=== PATIENT | male | born 1940 | race Caucasian/White ===

== ENCOUNTER → 2017-04-13 | Outpatient (CLI) | payer MEDICARE ==
--- NOTE | 2017-04-13 21:44 | US ---
EXAMINATION TYPE: US thyroid st tissue head/neck DATE OF EXAM: 04/13/2017 COMPARISON: NONE CLINICAL HISTORY: B22.1 left neck mass. Lump left parotid gland area Complex vascular mass left lateral neck near parotid gland area = 3.5 x 1.9 x 2.5cm IMPRESSION: Suspect heterogeneous hypervascular solid left-sided parotid mass. Further investigation with contrast-enhanced neck CT is advised as neoplasm needs to be excluded.
== END | disposition home or self-care (01) ==
LOC: RADUSWWP 15:11
PROVIDERS: ATTEND Internal Medicine
DX: K11.8 Other diseases of salivary glands (principal)
CPT/HCPCS: 76536

== ENCOUNTER 2019-02-17 10:50 | Observation (INO) | payer MEDICARE ==
[2019-02-17] MEDS ORDERED: IPRATROPIUM-ALBUTEROL 3 ML NEB INHALATION STA ×2 (11:30→13:41)
[2019-02-17 12:24] LABS: Basophils % (A) 0 %; Eosinophils # (A) 0.2 k/uL (0-0.7); Eosinophils % (A) 2 %; HCT 50.9 % (39.0-53.0); HGB 17.1 gm/dL (13.0-17.5); Lymphocytes % (A) 11 %; MCH 31.4 pg (25.0-35.0); MCHC 33.6 g/dL (31.0-37.0); MCV 93.3 fL (80.0-100.0); Mean Platelet Volume 5.4; Monocytes # (A) 0.4 k/uL (0-1.0); Monocytes % (A) 5 %; Neutrophils # (A) 7.3 k/uL (1.3-7.7); Neutrophils % (A) 81 %; Platelet Count 211 k/uL (150-450); RBC 5.45 m/uL (4.30-5.90); RDW 14.1 % (11.5-15.5); WBC 9.1 k/uL (3.8-10.6)
--- NOTE | 2019-02-17 12:29 | XR ---
EXAMINATION TYPE: XR chest 2V DATE OF EXAM: 02/17/2019 COMPARISON: NONE TECHNIQUE: PA and lateral views submitted. HISTORY: Shortness of breath FINDINGS: Hypertrophic and degenerative change of the spine. Hyperinflation suggests COPD. Areas of subsegmenta l consolidation are seen at the lung bases. No overt failure or pneumothorax. IMPRESSION: 1. Basilar atelectasis or infiltrate..
[2019-02-17 12:37] LABS: INR 0.9 (<1.2); Partial Thromboplastin Time 25.8 sec (22.0-30.0)
[2019-02-17 12:53] LABS: ALT 29 U/L (21-72); AST 26 U/L (17-59); African American GFR (CKD) >90 (>60 ml/min/1.73 sqM); Albumin 3.9 g/dL (3.5-5.0); Alkaline Phosphatase 73 U/L (38-126); Anion Gap 7 mmol/L; Blood Urea Nitrogen 21 mg/dL (9-20); Calcium 9.3 mg/dL (8.4-10.2); Carbon Dioxide 31 mmol/L (22-30); Chloride 103 mmol/L (98-107); Glucose 106 mg/dL (74-99); Potassium 4.2 mmol/L (3.5-5.1); Sodium 141 mmol/L (137-145); Total Bilirubin 0.9 mg/dL (0.2-1.3); Total Protein 6.6 g/dL (6.3-8.2)
--- NOTE | 2019-02-17 13:32 | ED ---
SOB HPI - General Chief Complaint: Shortness of Breath Stated Complaint: SOB Time Seen by Provider: 02/17/19 11:00 Source: patient, family Mode of arrival: wheelchair Limitations: no limitations - History of Present Illness Initial Comments: The patient is a 71-year-old male with past medical history of COPD who presents emergency room with reported shortness of breath. He was a transfer from the [facility]. The patient had left carpal tunnel surgery this morning. He went under sedation with ketamine and a local block. No general sedation. After the procedure was noted the patient was diffusely wheezy. Does report these been told that he is COPD however he has never required hospitalization or treatment for difficulty breathing. He does not use any inhalers or oxygen. He denies a history of congestive heart failure. The patient reports that he has had significant lower extremity edema which has been getting worse. He did go into the surgery with the edema present. Admits to a productive cough. No recent fevers or chills. Denies hemoptysis. No history of DVTs or PEs. Denies any chest pain. No ripping or tearing sensation to his back. Denies calf pain. Surgery was performed without complication. Denies any nausea, vomiting, abdominal pain. No changes in his bowel or bladder habits. There are no other alleviating, precipitating or modifying factors - Related Data Home Medications Medication Instructions Recorded Confirmed amLODIPine BESYLATE 5 mg PO DAILY 02/17/19 02/17/19 Previous Rx's Medication Instructions Recorded Azithromycin [Zithromax] 500 mg PO Q24H #5 tab 02/19/19 predniSONE See Taper PO DIRECTED 9 Days 02/19/19 #21 tab Allergies Allergy/AdvReac Type Severity Reaction Status Date / Time No Known Allergies Allergy Verified 02/17/19 13:50 Review of Systems ROS Statement: Those systems with pertinent positive or pertinent negative responses have been documented in the HPI. ROS Other: All systems not noted in ROS Statement are negative. Past Medical History Past Medical History: Cancer, COPD, Hypertension Additional Past Medical History / Comment(s): prostate/bladder CA History of Any Multi-Drug Resistant Organisms: None Reported Past Surgical History: Back Surgery, Prostate Surgery Smoking Status: Current every day smoker Past Alcohol Use History: Occasional Past Drug Use History: None Reported - Past Family History Father Family Medical History: Vascular Disorder Additional Family Medical History / Comment(s): Father young from a brain aneurysm. Mother Family Medical History: Cancer Additional Family Medical History / Comment(s): Mother young with a malignant brain tumor. Brother(s) Family Medical History: Cancer Additional Family Medical History / Comment(s): Brother of malignant brain cancer (same kind as the mother). General Exam Limitations: no limitations General appearance: alert, in no apparent distress Head exam: Present: atraumatic, normocephalic, normal inspection Eye exam: Present: normal appearance, PERRL, EOMI. Absent: scleral icterus, conjunctival injection, periorbital swelling ENT exam: Present: normal exam, mucous membranes moist Neck exam: Present: normal inspection. Absent: tenderness, meningismus, lymphadenopathy Respiratory exam: Present: wheezes, rales, accessory muscle use, other (tachypnia, tripod positioning). Absent: respiratory distress, rhonchi, stridor Cardiovascular Exam: Present: regular rate, normal rhythm, normal heart sounds. Absent: systolic murmur, diastolic murmur, rubs, gallop, clicks GI/Abdominal exam: Present: soft, normal bowel sounds. Absent: distended, tenderness, guarding, rebound, rigid Extremities exam: Present: normal inspection, full ROM, normal capillary refill. Absent: tenderness, pedal edema, joint swelling, calf tenderness Back exam: Present: normal inspection Neurological exam: Present: alert, oriented X3, CN II-XII intact Psychiatric exam: Present: normal affect, normal mood Skin exam: Present: warm, dry, intact, normal color. Absent: rash Course Vital Signs 02/17/19 02/17/19 02/17/19 10:55 11:58 12:41 Temperature 97.8 F Pulse Rate 83 80 74 Respiratory 26 H 22 16 Rate Blood Pressure 154/77 172/70 O2 Sat by Pulse 91 L 95 Oximetry 02/17/19 02/17/19 02/17/19 12:50 13:15 14:00 Temperature 98.0 F Pulse Rate 77 75 72 Respiratory 18 20 18 Rate Blood Pressure 162/64 166/67 O2 Sat by Pulse 93 L 95 Oximetry 02/17/19 14:11 Temperature Pulse Rate 78 Respiratory 16 Rate Blood Pressure O2 Sat by Pulse Oximetry Medical Decision Making - Medical Decision Making Upon arrival the patient is placed into room 24. A thorough history and physical was performed. The patient was placed on 2 L oxygen. I immediately ordered a DuoNeb breathing treatment for the patient. Peripheral IV was established. He was given 125 mg of Solu-Medrol and a gram of magnesium. Laboratory studies were conducted the patient had a chest x-ray performed. Laboratory studies demonstrate a CO2 31. Glucose 106. First troponin is negative. BNP is 157. Chest x-ray demonstrates basilar atelectasis or infiltrate. I did discuss these results with the patient. He does remain diffusely wheezy. Because of this I did recommend hospital admission. I called and discussed the case with Dr. Hong. He did accept admission for the patient. I will place the patient on breathing treatments, antibiotics and steroids. The patient remained in stable condition awaiting transport to the floor - Lab Data Result diagrams: 02/18/19 06:46 02/18/19 06:46 Lab Results 02/17/19 02/17/19 02/17/19 Range/Units 12:00 12:00 12:00 WBC 9.1 (3.8-10.6) k/uL RBC 5.45 (4.30-5.90) m/uL Hgb 17.1 (13.0-17.5) gm/dL Hct 50.9 (39.0-53.0) % MCV 93.3 (80.0-100.0) fL MCH 31.4 (25.0-35.0) pg MCHC 33.6 (31.0-37.0) g/dL RDW 14.1 (11.5-15.5) % Plt Count 211 (150-450) k/uL Neutrophils % 81 % Lymphocytes % 11 % Monocytes % 5 % Eosinophils % 2 % Basophils % 0 % Neutrophils # 7.3 (1.3-7.7) k/uL Lymphocytes # 1.0 (1.0-4.8) k/uL Monocytes # 0.4 (0-1.0) k/uL Eosinophils # 0.2 (0-0.7) k/uL Basophils # 0.0 (0-0.2) k/uL PT (9.0-12.0) sec INR (<1.2) APTT (22.0-30.0) sec Sodium 141 (137-145) mmol/L Potassium 4.2 (3.5-5.1) mmol/L Chloride 103 (98-107) mmol/L Carbon Dioxide 31 H (22-30) mmol/L Anion Gap 7 mmol/L BUN 21 H (9-20) mg/dL Creatinine 0.88 (0.66-1.25) mg/dL Est GFR (CKD-EPI)AfAm >90 (>60 ml/min/1.73 sqM) Est GFR (CKD-EPI)NonAf 83 (>60 ml/min/1.73 sqM) Glucose 106 H (74-99) mg/dL Calcium 9.3 (8.4-10.2) mg/dL Total Bilirubin 0.9 (0.2-1.3) mg/dL AST 26 (17-59) U/L ALT 29 (21-72) U/L Alkaline Phosphatase 73 (38-126) U/L Troponin I (0.000-0.034) ng/mL NT-Pro-B Natriuret Pep 157 pg/mL Total Protein 6.6 (6.3-8.2) g/dL Albumin 3.9 (3.5-5.0) g/dL 02/17/19 02/17/19 Range/Units 12:00 12:00 WBC (3.8-10.6) k/uL RBC (4.30-5.90) m/uL Hgb (13.0-17.5) gm/dL Hct (39.0-53.0) % MCV (80.0-100.0) fL MCH (25.0-35.0) pg MCHC (31.0-37.0) g/dL RDW (11.5-15.5) % Plt Count (150-450) k/uL Neutrophils % % Lymphocytes % % Monocytes % % Eosinophils % % Basophils % % Neutrophils # (1.3-7.7) k/uL Lymphocytes # (1.0-4.8) k/uL Monocytes # (0-1.0) k/uL Eosinophils # (0-0.7) k/uL Basophils # (0-0.2) k/uL PT 10.0 (9.0-12.0) sec INR 0.9 (<1.2) APTT 25.8 (22.0-30.0) sec Sodium (137-145) mmol/L Potassium (3.5-5.1) mmol/L Chloride (98-107) mmol/L Carbon Dioxide (22-30) mmol/L Anion Gap mmol/L BUN (9-20) mg/dL Creatinine (0.66-1.25) mg/dL Est GFR (CKD-EPI)AfAm (>60 ml/min/1.73 sqM) Est GFR (CKD-EPI)NonAf (>60 ml/min/1.73 sqM) Glucose (74-99) mg/dL Calcium (8.4-10.2) mg/dL Total Bilirubin (0.2-1.3) mg/dL AST (17-59) U/L ALT (21-72) U/L Alkaline Phosphatase (38-126) U/L Troponin I <0.012 (0.000-0.034) ng/mL NT-Pro-B Natriuret Pep pg/mL Total Protein (6.3-8.2) g/dL Albumin (3.5-5.0) g/dL - EKG Data EKG Comments: EKG demonstrates a sinus rhythm with premature atrial complexes. Rate of 77. TN interval 184. QRS 88. QTC 436. There are peaked T waves in leads V3. No reciprocal changes. No acute ST segment elevations Disposition Clinical Impression: Acute exacerbation of chronic obstructive pulmonary disease, Acute respiratory insufficiency Disposition: ADMITTED IP TO THIS HOSP Condition: Stable Is patient prescribed a controlled substance at d/c from ED?: No Decision to Admit Reason: Admit from EC Decision Date: 02/17/19 Decision Time: 13:43
[2019-02-17] MEDS ORDERED: AZITHROMYCIN 500 MG in SODIUM CHLORIDE 0.9% 250 ML IVPB STA (13:42)
[2019-02-17] MEDS ORDERED: methylPREDNISolone SOD SUCCI 125 MG/2 ML VIAL IV STA (13:42)
[2019-02-17] MEDS ORDERED: MORPHINE SULFATE 4 MG/ML SYRINGE IVP STA (13:43)
[2019-02-17] MEDS ORDERED: NALOXONE 0.4 MG/ML 1 ML VIAL IV PRN (13:44)
[2019-02-17] MEDS ORDERED: PNEUMOCOCCAL VACC-PNEUMOVAX 23 25 MCG/0.5 ML VIAL IM ONE (15:12)
[2019-02-17] MEDS ORDERED: INFLUENZA VACCINE (6 MOS+) 60 MCG/0.5 ML SYRINGE IM ONE (15:12)
[2019-02-17] MEDS: IPRATROPIUM-ALBUTEROL 3 ML NEB INHALATION SCH ×2 (15:50→20:24)
--- NOTE | 2019-02-17 17:49 | P.HPIM ---
History of Present Illness H&P Date: 02/17/19 Chief Complaint: Shortness of breath 79-year-old male patient with past medical history of COPD, hypertension and prostate/bladder cancer who is a current every day smoker presents to ED with complaint of shortness of breath which has been getting progressively worse; upon arrival to ED patient was found to be hypoxic and Tachypneic with a pulse ox of 91%; EKG shows normal sinus rhythm with PACs; chest x-ray was negative for any acute pulmonary disease; patient is admitted with acute exacerbation COPD Review of Systems Constitutional: Reports chills, Denies fever Eyes: denies blurred vision, denies loss of vision Ears, nose, mouth and throat: Denies epistaxis, Denies headache Cardiovascular: Reports dyspnea on exertion, Reports edema, Denies chest pain Respiratory: Reports cough with sputum Gastrointestinal: Denies abdominal pain, Denies nausea, Denies vomiting Genitourinary: Denies dysuria, Denies hematuria Musculoskeletal: Denies gait dysfunction Integumentary: Denies darkening of skin Neurological: Denies confusion, Denies double vision Psychiatric: Reports anxiety Endocrine: Denies cold intolerance, Denies heat intolerance Hematologic/Lymphatic: Denies lymphadenopathy Past Medical History Past Medical History: Cancer, COPD, Hypertension, Osteoarthritis (OA) Additional Past Medical History / Comment(s): Prostate/bladder CA with surgeries including cystectomy/has urostomy, UTI, L paratid Warthins tumor-benign, chronic low back pain, numbness/tingling bilateral lower extremities with R side worse. History of Any Multi-Drug Resistant Organisms: None Reported Past Surgical History: Back Surgery, Bladder Surgery, Orthopedic Surgery, Prostate Surgery Additional Past Surgical History / Comment(s): Prostatectomy, cystectomy/urostomy, low back surgery, cervical surgery, L knee arthroscopy, Past Anesthesia/Blood Transfusion Reactions: No Reported Reaction Smoking Status: Current every day smoker - Past Family History Father Family Medical History: Vascular Disorder Additional Family Medical History / Comment(s): Father young from a brain aneurysm. Mother Family Medical History: Cancer Additional Family Medical History / Comment(s): Mother young with a malignant brain tumor. Brother(s) Family Medical History: Cancer Additional Family Medical History / Comment(s): Brother of malignant brain cancer (same kind as the mother). Medications and Allergies Home Medications Medication Instructions Recorded Confirmed Type amLODIPine BESYLATE 5 mg PO DAILY 02/17/19 02/17/19 History Allergies Allergy/AdvReac Type Severity Reaction Status Date / Time No Known Allergies Allergy Verified 02/17/19 13:50 Physical Exam Vitals: Vital Signs Temp Pulse Pulse Resp BP BP Pulse Ox 02/17/19 14:58 97.8 F 80 16 168/68 92 L 02/17/19 14:11 78 16 02/17/19 14:00 98.0 F 72 18 166/67 95 02/17/19 13:15 75 20 162/64 93 L 02/17/19 12:50 77 18 02/17/19 12:41 74 16 02/17/19 11:58 80 22 172/70 95 02/17/19 10:55 97.8 F 83 26 H 154/77 91 L Intake and Output 02/17/19 02/17/19 02/17/19 06:59 14:59 22:59 Other: # Voids 0 Weight 82.554 kg PHYSICAL EXAMINATION: GENERAL: The patient is alert and oriented x3, not in any acute distress. Well developed, well nourished. HEENT: Pupils are round and equally reacting to light. EOMI. No scleral icterus. No conjunctival pallor. Normocephalic, atraumatic. No pharyngeal erythema. No thyromegaly. CARDIOVASCULAR: S1 and S2 present. No murmurs, rubs, or gallops. PULMONARY: Chest is clear to auscultation, no wheezing or crackles. ABDOMEN: Soft, nontender, nondistended, normoactive bowel sounds. No palpable organomegaly. MUSCULOSKELETAL: No joint swelling or deformity. EXTREMITIES: No cyanosis, clubbing, or pedal edema. NEUROLOGICAL: Gross neurological examination did not reveal any focal deficits. SKIN: No rashes. Results CBC & Chem 7: 02/17/19 12:00 02/17/19 12:00 Labs: Abnormal Lab Results - Last 24 Hours (Table) 02/17/19 Range/Units 12:00 Carbon Dioxide 31 H (22-30) mmol/L BUN 21 H (9-20) mg/dL Glucose 106 H (74-99) mg/dL Thrombosis Risk Factor Assmnt - Choose All That Apply Any of the Below Risk Factors Present?: Yes Each Factor Represents 1 point: Abnormal pulmonary function (COPD), Obesity (BMI >25), Serious lung disease incl. pneumonia (< 1month) Other Risk Factors: Yes Each Risk Factor Represents 2 Points: Malignancy Each Risk Factor Represents 3 Points: Age 75 years or older Other congenital or acquired thrombophilia - If yes, enter type in comment: No Thrombosis Risk Factor Assessment Total Risk Factor Score: 8 Thrombosis Risk Factor Assessment Level: High Risk Assessment and Plan Assessment: 1. Acute exacerbation COPD - Start patient on IV Solu-Medrol, bronchodilator nebulizer treatments and IV antibiotics - O2 per nasal cannula keeping SpO2 greater than 92% 2. Uncontrolled hypertension; we will restart patient on home dose of Norvasc and continue to monitor her pressure closely for any require changes 3. Mild MARY; slow IV fluid hydration with normal saline; monitor strict YOLI's, daily weights, renal function and electrolytes; avoid hypotension and nephrotoxins 4. Obesity; counseling done on risks of obesity and need for weight reduction 5. DVT prophylaxis; SCDs/subcu heparin CODE STATUS; full code Time with Patient: Greater than 30
[2019-02-18] MEDS: IPRATROPIUM-ALBUTEROL 3 ML NEB INHALATION SCH ×6 (00:03→19:57)
[2019-02-18] MEDS: HEPARIN SODIUM,PORCINE 5,000 UNIT/ML 1 ML VIAL SQ SCH ×4 (00:21→23:19)
[2019-02-18 07:24] LABS: Basophils % (A) 0 %; Eosinophils % (A) 0 %; HCT 49.2 % (39.0-53.0); HGB 15.6 gm/dL (13.0-17.5); Lymphocytes # (A) 0.6 k/uL (1.0-4.8); Lymphocytes % (A) 5 %; MCH 30.7 pg (25.0-35.0); MCHC 31.6 g/dL (31.0-37.0); MCV 97.1 fL (80.0-100.0); Mean Platelet Volume 6.2; Monocytes # (A) 0.7 k/uL (0-1.0); Monocytes % (A) 6 %; Neutrophils # (A) 10.7 k/uL (1.3-7.7); Neutrophils % (A) 88 %; Platelet Count 216 k/uL (150-450); RBC 5.07 m/uL (4.30-5.90); RDW 14.3 % (11.5-15.5); WBC 12.1 k/uL (3.8-10.6)
[2019-02-18 07:47] LABS: African American GFR (CKD) >90 (>60 ml/min/1.73 sqM); Anion Gap 7 mmol/L; Blood Urea Nitrogen 21 mg/dL (9-20); Carbon Dioxide 28 mmol/L (22-30); Chloride 102 mmol/L (98-107); Glucose 121 mg/dL (74-99); Potassium 4.4 mmol/L (3.5-5.1); Sodium 137 mmol/L (137-145)
[2019-02-18] MEDS: amLODIPine 5 MG TAB PO SCH (08:05)
[2019-02-18] MEDS ORDERED: AZITHROMYCIN 500 MG TAB PO SCH (14:00)
--- NOTE | 2019-02-18 16:28 | P.PN ---
Subjective Progress Note Date: 02/18/19 Principal diagnosis: Acute exacerbation COPD 79-year-old male patient with past medical history of COPD, hypertension and prostate/bladder cancer who is a current every day smoker presents to ED with complaint of shortness of breath which has been getting progressively worse; upo n arrival to ED patient was found to be hypoxic and Tachypneic with a pulse ox of 91%; EKG shows normal sinus rhythm with PACs; chest x-ray was negative for any acute pulmonary disease; patient is admitted with acute exacerbation COPD 02/18/2019 Patient is seen and evaluated in room with her daughter at bedside; patient has been requesting discharge home; remains on 2 L of oxygen with marked drop in SpO2 with minimal activity Vital signs temperature of 98, pulse 79, respirations 17 and blood pressure of 157/63 and SpO2 of 90% on 2 L Patient remains on IV Solu-Medrol and bronchodilator nebulizer treatments; we will consult pulmonary for further recommendations Objective - Vital Signs Vital signs: Vital Signs Temp 97.9 F 02/18/19 07:00 Pulse 80 02/18/19 11:50 Resp 16 02/18/19 07:00 BP 170/66 02/18/19 07:00 Pulse Ox 93 L 02/18/19 07:00 Intake & Output 02/17/19 02/18/19 02/18/19 18:59 06:59 18:59 Intake Total 320 236 Balance 320 236 Weight 82.554 kg Intake: Oral 320 236 Other: # Voids 0 1 - Exam PHYSICAL EXAMINATION: GENERAL: The patient is alert and oriented x3, not in any acute distress. Well developed, well nourished. HEENT: Pupils are round and equally reacting to light. EOMI. No scleral icterus. No conjunctival pallor. Normocephalic, atraumatic. No pharyngeal erythema. No thyromegaly. CARDIOVASCULAR: S1 and S2 present. No murmurs, rubs, or gallops. PULMONARY: Chest is clear to auscultation, no wheezing or crackles. ABDOMEN: Soft, nontender, nondistended, normoactive bowel sounds. No palpable organomegaly. MUSCULOSKELETAL: No joint swelling or deformity. EXTREMITIES: No cyanosis, clubbing, or pedal edema. NEUROLOGICAL: Gross neurological examination did not reveal any focal deficits. SKIN: No rashes. - Labs CBC & Chem 7: 02/18/19 06:46 02/18/19 06:46 Labs: Abnormal Lab Results - Last 24 Hours (Table) 02/18/19 02/18/19 Range/Units 06:46 06:46 WBC 12.1 H (3.8-10.6) k/uL Neutrophils # 10.7 H (1.3-7.7) k/uL Lymphocytes # 0.6 L (1.0-4.8) k/uL BUN 21 H (9-20) mg/dL Glucose 121 H (74-99) mg/dL Assessment and Plan Assessment: 1. Acute exacerbation COPD - Start patient on IV Solu-Medrol, bronchodilator nebulizer treatments and IV antibiotics - O2 per nasal cannula keeping SpO2 greater than 92% 2. Uncontrolled hypertension; we will restart patient on home dose of Norvasc and continue to monitor her pressure closely for any require changes 3. Mild MARY; slow IV fluid hydration with normal saline; monitor strict YOLI's, daily weights, renal function and electrolytes; avoid hypotension and nephrotoxins 4. Obesity; counseling done on risks of obesity and need for weight reduction 5. DVT prophylaxis; SCDs/subcu heparin CODE STATUS; full code Time with Patient: Greater than 30
[2019-02-18] MEDS: methylPREDNISolone SOD SUCCI 40 MG/ML 1 ML VIAL IV SCH ×2 (16:45→23:19)
[2019-02-19] MEDS: IPRATROPIUM-ALBUTEROL 3 ML NEB INHALATION SCH ×4 (00:35→12:29)
[2019-02-19] MEDS ORDERED: NAPROXEN 250 MG TAB PO PRN (03:08)
[2019-02-19 07:03] VITALS: BP 163/79; RESP 18; TEMP 99.2
[2019-02-19] MEDS: amLODIPine 5 MG TAB PO SCH (07:33)
[2019-02-19] MEDS: HEPARIN SODIUM,PORCINE 5,000 UNIT/ML 1 ML VIAL SQ SCH (07:33)
[2019-02-19] MEDS: methylPREDNISolone SOD SUCCI 40 MG/ML 1 ML VIAL IV SCH (07:34)
--- NOTE | 2019-02-19 12:47 | P.DS ---
Providers Date of admission: 02/17/19 13:44 Expected date of discharge: 02/19/19 Attending physician: Mounika Hong Consults: 02/18/19 16:28 Consult Physician Routine Consulting Provider: Jovany Hinton Consult Reason/Comments: Acute exacerbation COPD/hypoxemia Do you want consulting provider notified?: Yes [facility]: 79-year-old male patient with past medical history of COPD, hypertension and prostate/bladder cancer who is a current every day smoker presents to ED with complaint of shortness of breath which has been getting progressively worse; upon arrival to ED patient was found to be hypoxic and Tachypneic with a pulse ox of 91%; EKG shows normal sinus rhythm with PACs; chest x-ray was negative for any acute pulmonary disease; patient is admitted with acute exacerbation COPD 1. Acute exacerbation COPD - Start patient on IV Solu-Medrol, bronchodilator nebulizer treatments and IV antibiotics - O2 per nasal cannula keeping SpO2 greater than 92% 2. Uncontrolled hypertension; we will restart patient on home dose of Norvasc and continue to monitor her pressure closely for any require changes 3. Mild MARY; slow IV fluid hydration with normal saline; monitor strict YOLI's, daily weights, renal function and electrolytes; avoid hypotension and nephrotoxins 4. Obesity; counseling done on risks of obesity and need for weight reduction 5. DVT prophylaxis; SCDs/subcu heparin CODE STATUS; full code Pulmonary service is consulted and patient was recommended to continue with current treatment and discharged to be followed up by pulmonary service in 2-3 days Patient Condition at Discharge: Stable Plan - Discharge Summary Discharge Rx Participant: No New Discharge Prescriptions: New predniSONE See Taper PO DIRECTED 9 Days #21 tab Azithromycin [Zithromax] 500 mg PO Q24H #5 tab Continue amLODIPine BESYLATE 5 mg PO DAILY Discharge Medication List amLODIPine BESYLATE 5 mg PO DAILY 02/17/19 [History] Azithromycin [Zithromax] 500 mg PO Q24H #5 tab 02/19/19 [Rx] predniSONE See Taper PO DIRECTED 9 Days #21 tab 02/19/19 [Rx] Follow up Appointment(s)/Referral(s): Jovany Hinton MD [STAFF PHYSICIAN] - 3 Days Yuval Caemron MD [Primary Care Provider] - 1-2 days Patient Instructions/Handouts: COPD (Chronic Obstructive Pulmonary Disease) (DC) Discharge Disposition: HOME SELF-CARE
[2019-02-19 12:58] VITALS: PULSE 88
== END 2019-02-19 13:02 | disposition home or self-care (01) ==
LOC: EC 10:50 → 4SSUR 13:44
PROVIDERS: ADMIT Internal Medicine; ATTEND Internal Medicine
DX: J44.1 Chronic obstructive pulmonary disease with (acute) exacerbation (principal); N17.9 Acute kidney failure, unspecified; I10 Essential (primary) hypertension; F17.200 Nicotine dependence, unspecified, uncomplicated; I49.1 Atrial premature depolarization; G56.02 Carpal tunnel syndrome, left upper limb; Z98.890 Other specified postprocedural states; R60.0 Localized edema; M19.90 Unspecified osteoarthritis, unspecified site; G89.29 Other chronic pain; M54.5 Low back pain; R20.2 Paresthesia of skin; R20.0 Anesthesia of skin; E66.9 Obesity, unspecified; Z68.31 Body mass index [BMI] 31.0-31.9, adult; Z79.899 Other long term (current) drug therapy; Z85.51 Personal history of malignant neoplasm of bladder; Z87.440 Personal history of urinary (tract) infections; Z90.79 Acquired absence of other genital organ(s); Z85.46 Personal history of malignant neoplasm of prostate; Z80.8 Family history of malignant neoplasm of other organs or systems; Z82.49 Family history of ischemic heart disease and other diseases of the circulatory system; Z23 Encounter for immunization
CPT/HCPCS: 96376 ×2; 96372 ×2; 96365; 96366; 96375; 99285; 36415; 94640 ×6; 83880; 80053; 80048; 84484 ×2; 85025 ×2; 85610; 85730; 71046; 90732; 90686; G0378 ×3; G0008; G0009; J2270; J1644 ×2; J2920 ×2; J2930; J0456

== ENCOUNTER 2019-03-08 12:12 | Inpatient (IN) | payer MEDICARE ==
--- NOTE | 2019-03-08 12:47 | ED ---
General Adult HPI - General Chief complaint: Shortness of Breath Stated complaint: SOB Time Seen by Provider: 03/08/19 12:23 Source: patient Mode of arrival: ambulatory Limitations: no limitations - History of Present Illness Initial comments: Dictation was produced using [employer] dictation software. please excuse any grammatical, word or spelling errors. Chief Complaint: 79-year-old male past medical history of prostate cancer, COPD and hypertension presents with shortness of breath and lower extremity swelling. History of Present Illness: Patient is a 71-year-old male he was seen for a follow-up appointment at Dr. Miller office. Patient was recently hospitalized for acute exacerbation of COPD with hypoxic respiratory failure. Patient was admitted to the hospital for approximately 2 days. Patient was seen at Dr. Cameron's office for a follow-up appointment. Dr. Cameron as instructed patient to the emergency department for persistent shortness of breath. Patient also reports development of swelling in his lower extremities. Patient states she developed swelling after having carpal tunnel procedure performed several weeks ago. Patient denies any URI type symptoms. No right nose, sore throat. Patient has history of COPD. Patient has baseline cough which appears to be at baseline for him currently. Patient has no pain complaints at this time. Patient otherwise feels well. The ROS documented in this emergency department record has been reviewed and confirmed by me. Those systems with pertinent positive or negative responses have been documented in the HPI. All other systems are other negative and/or noncontributory. PHYSICAL EXAM: General Impression: Alert and oriented x3, not in acute distress HEENT: Normocephalic atraumatic, extra-ocular movements intact, pupils equal and reactive to light bilaterally, mucous membranes moist. Cardiovascular: Heart regular rate and rhythm, S1&S2 audible, no murmurs, rubs or gallops Chest: Diffuse lung crackles Abdomen: Bowel sounds present, abdomen soft, non-tender, non-distended, no organomegaly Musculoskeletal: Pulses present and equal in all extremities, 2+ pitting edema to bilateral lower extremities Motor: no focal deficits noted Neurological: CN II-XII grossly intact, no focal motor or sensory deficits noted Skin: Intact with no visualized rashes Psych: Normal affect and mood ED course: 79-year-old male sent in by primary care physician for dyspnea and lower extremity swelling. Vital signs upon arrival are within acceptable limits . Patient does not appear to be in distress at this time. Auscultation to the lungs shows crackles diffusely. Laboratory evaluation obtained. CBC, coag panel, metabolic is unremarkable. probnp is 569. Troponin 0.023 which appears to be at baseline. Chest x-ray shows chronic findings. Given low proBNP patient's clinical presentation likely not heart failure. I believe patient's symptoms are secondary to COPD. Patient given breathing treatment and DuoNeb. Patient had his oxygen recheck found to be 88%. Patient's clinical presentation consistent with also hypoxic respiratory failure. Patient will be admitted with pulmonology consultation. EKG interpretation: Ventricular rate 95, sinus rhythm,. Interval 194, care is 82, QTC 422. No [place] prolongation, no QTC prolongation, no ST or T-wave changes noted. EKG compared to 02/17/2019 showing no changes. Overall, this EKG is unremarkable - Related Data Home Medications Medication Instructions Recorded Confirmed amLODIPine BESYLATE 5 mg PO DAILY 02/17/19 02/17/19 Previous Rx's Medication Instructions Recorded Azithromycin [Zithromax] 500 mg PO Q24H #5 tab 02/19/19 predniSONE See Taper PO DIRECTED 9 Days 02/19/19 #21 tab Allergies Allergy/AdvReac Type Severity Reaction Status Date / Time No Known Allergies Allergy Verified 03/08/19 12:15 Review of Systems ROS Statement: Those systems with pertinent positive or pertinent negative responses have been documented in the HPI. ROS Other: All systems not noted in ROS Statement are negative. Past Medical History Past Medical History: Cancer, COPD, Hypertension Additional Past Medical History / Comment(s): prostate/bladder CA History of Any Multi-Drug Resistant Organisms: None Reported Past Surgical History: Back Surgery, Orthopedic Surgery, Prostate Surgery Additional Past Surgical History / Comment(s): carpal tunnel Past Anesthesia/Blood Transfusion Reactions: No Reported Reaction Past Psychological History: No Psychological Hx Reported Smoking Status: Former smoker Past Alcohol Use History: Occasional Past Drug Use History: None Reported - Past Family History Father Family Medical History: Vascular Disorder Additional Family Medical History / Comment(s): Father young from a brain aneurysm. Mother Family Medical History: Cancer Additional Family Medical History / Comment(s): Mother young with a malignant brain tumor. Brother(s) Family Medical History: Cancer Additional Family Medical History / Comment(s): Brother of malignant brain cancer (same kind as the mother). General Exam Limitations: no limitations Course Vital Signs 03/08/19 03/08/19 03/08/19 12:15 12:41 13:59 Temperature 98.1 F Pulse Rate 85 22 L Respiratory 18 22 94 H Rate Blood Pressure 178/98 183/90 O2 Sat by Pulse 93 L 88 L Oximetry 03/08/19 14:03 Temperature Pulse Rate 91 Respiratory 18 Rate Blood Pressure O2 Sat by Pulse 94 L Oximetry Medical Decision Making - Lab Data Result diagrams: 03/08/19 12:37 03/08/19 12:37 Lab Results 03/08/19 03/08/19 03/08/19 Range/Units 12:37 12:37 12:37 WBC 9.6 (3.8-10.6) k/uL RBC 5.07 (4.30-5.90) m/uL Hgb 16.0 (13.0-17.5) gm/dL Hct 47.9 (39.0-53.0) % MCV 94.6 (80.0-100.0) fL MCH 31.5 (25.0-35.0) pg MCHC 33.3 (31.0-37.0) g/dL RDW 14.0 (11.5-15.5) % Plt Count 200 (150-450) k/uL Neutrophils % 85 % Lymphocytes % 6 % Monocytes % 5 % Eosinophils % 1 % Basophils % 2 % Neutrophils # 8.1 H (1.3-7.7) k/uL Lymphocytes # 0.6 L (1.0-4.8) k/uL Monocytes # 0.5 (0-1.0) k/uL Eosinophils # 0.1 (0-0.7) k/uL Basophils # 0.2 (0-0.2) k/uL PT (9.0-12.0) sec INR (<1.2) APTT (22.0-30.0) sec Sodium 138 (137-145) mmol/L Potassium 4.9 (3.5-5.1) mmol/L Chloride 105 (98-107) mmol/L Carbon Dioxide 29 (22-30) mmol/L Anion Gap 4 mmol/L BUN 18 (9-20) mg/dL Creatinine 0.76 (0.66-1.25) mg/dL Est GFR (CKD-EPI)AfAm >90 (>60 ml/min/1.73 sqM) Est GFR (CKD-EPI)NonAf 88 (>60 ml/min/1.73 sqM) Glucose 128 H (74-99) mg/dL POC Glucose (mg/dL) (75-99) mg/dL POC Glu [employer] Consultant ID Calcium 9.1 (8.4-10.2) mg/dL Magnesium 1.9 (1.6-2.3) mg/dL Total Bilirubin 1.3 (0.2-1.3) mg/dL AST 45 (17-59) U/L ALT 53 (21-72) U/L Alkaline Phosphatase 63 (38-126) U/L Troponin I (0.000-0.034) ng/mL NT-Pro-B Natriuret Pep 569 pg/mL Total Protein 7.0 (6.3-8.2) g/dL Albumin 3.9 (3.5-5.0) g/dL 03/08/19 03/08/19 03/08/19 Range/Units 12:37 12:37 14:01 WBC (3.8-10.6) k/uL RBC (4.30-5.90) m/uL Hgb (13.0-17.5) gm/dL Hct (39.0-53.0) % MCV (80.0-100.0) fL MCH (25.0-35.0) pg MCHC (31.0-37.0) g/dL RDW (11.5-15.5) % Plt Count (150-450) k/uL Neutrophils % % Lymphocytes % % Monocytes % % Eosinophils % % Basophils % % Neutrophils # (1.3-7.7) k/uL Lymphocytes # (1.0-4.8) k/uL Monocytes # (0-1.0) k/uL Eosinophils # (0-0.7) k/uL Basophils # (0-0.2) k/uL PT 9.9 (9.0-12.0) sec INR 0.9 (<1.2) APTT 25.9 (22.0-30.0) sec Sodium (137-145) mmol/L Potassium (3.5-5.1) mmol/L Chloride (98-107) mmol/L Carbon Dioxide (22-30) mmol/L Anion Gap mmol/L BUN (9-20) mg/dL Creatinine (0.66-1.25) mg/dL Est GFR (CKD-EPI)AfAm (>60 ml/min/1.73 sqM) Est GFR (CKD-EPI)NonAf (>60 ml/min/1.73 sqM) Glucose (74-99) mg/dL POC Glucose (mg/dL) 105 H (75-99) mg/dL POC Glu [employer] Consultant ID Tammy Blair Calcium (8.4-10.2) mg/dL Magnesium (1.6-2.3) mg/dL Total Bilirubin (0.2-1.3) mg/dL AST (17-59) U/L ALT (21-72) U/L Alkaline Phosphatase (38-126) U/L Troponin I 0.023 (0.000-0.034) ng/mL NT-Pro-B Natriuret Pep pg/mL Total Protein (6.3-8.2) g/dL Albumin (3.5-5.0) g/dL Disposition Clinical Impression: Hypoxia, COPD (chronic obstructive pulmonary disease) Disposition: ADMITTED IP TO THIS HOSP Condition: Fair Referrals: Yuval Cameron MD [Primary Care Provider] - 1-2 days Decision Time: 14:15
[2019-03-08 12:57] LABS: ALT 53 U/L (21-72); AST 45 U/L (17-59); African American GFR (CKD) >90 (>60 ml/min/1.73 sqM); Albumin 3.9 g/dL (3.5-5.0); Alkaline Phosphatase 63 U/L (38-126); Anion Gap 4 mmol/L; Basophils # (A) 0.2 k/uL (0-0.2); Basophils % (A) 2 %; Blood Urea Nitrogen 18 mg/dL (9-20); Calcium 9.1 mg/dL (8.4-10.2); Carbon Dioxide 29 mmol/L (22-30); Chloride 105 mmol/L (98-107); Eosinophils # (A) 0.1 k/uL (0-0.7); Eosinophils % (A) 1 %; Glucose 128 mg/dL (74-99); HCT 47.9 % (39.0-53.0); Lymphocytes # (A) 0.6 k/uL (1.0-4.8); Lymphocytes % (A) 6 %; MCH 31.5 pg (25.0-35.0); MCHC 33.3 g/dL (31.0-37.0); MCV 94.6 fL (80.0-100.0); Magnesium 1.9 mg/dL (1.6-2.3); Mean Platelet Volume 5.6; Monocytes # (A) 0.5 k/uL (0-1.0); Monocytes % (A) 5 %; Neutrophils # (A) 8.1 k/uL (1.3-7.7); Neutrophils % (A) 85 %; Platelet Count 200 k/uL (150-450); RBC 5.07 m/uL (4.30-5.90); Sodium 138 mmol/L (137-145); Total Bilirubin 1.3 mg/dL (0.2-1.3); WBC 9.6 k/uL (3.8-10.6)
--- NOTE | 2019-03-08 12:58 | XR ---
EXAMINATION TYPE: XR chest 2V DATE OF EXAM: 03/08/2019 COMPARISON: Prior chest x-ray 02/22/2019, 02/17/2019 HISTORY: Lower limb swelling, dyspnea TECHNIQUE: Frontal and lateral views of the chest are obtained. FINDINGS: There are overlying cardiac leads. Probable subsegmental basilar atelectatic changes are pr esent versus scarring. Technique is apical lordotic and rotated. There is no focal air space opacity, pleural effusion, or pneumothorax seen. The cardiac silhouette size is within normal limits. The osseous structures are intact. IMPRESSION: Probable subsegmental basilar atelectasis or scarring.
[2019-03-08 13:02] LABS: INR 0.9 (<1.2); Partial Thromboplastin Time 25.9 sec (22.0-30.0); Prothrombin Time 9.9 sec (9.0-12.0)
[2019-03-08 13:08] LABS: Potassium 4.9 mmol/L (3.5-5.1)
[2019-03-08] MEDS ORDERED: DEXAMETHASONE 4 MG TAB PO STA (13:25)
[2019-03-08] MEDS ORDERED: IPRATROPIUM-ALBUTEROL 3 ML NEB INHALATION STA (13:25)
[2019-03-08 14:04] LABS: Glucose,Whole Blood 105 mg/dL (75-99)
[2019-03-08] MEDS ORDERED: AZITHROMYCIN 500 MG TAB PO STA (14:18)
[2019-03-08] MEDS: FUROSEMIDE 20 MG TAB PO SCH (18:15)
[2019-03-08] MEDS: POTASSIUM CHLORIDE ER 10 MEQ TAB.ER.PRT PO SCH (20:40)
[2019-03-08] MEDS: HEPARIN SODIUM,PORCINE 5,000 UNIT/ML 1 ML VIAL SQ SCH (23:43)
--- NOTE | 2019-03-08 23:51 | P.HPIM ---
History of Present Illness H&P Date: 03/08/19 Chief Complaint: Shortness of breath Patient is a 79-year-old male with a known history of COPD, hypertension, history of prostate cancer status post resection, chronic low back pain and bilateral lower extremity edema came to ER with the complaints of shortness of breath. Patient was previously admitted to the hospital early this month due to acute COPD exacerbation. A john paul was seen at Dr. Cameron's office for follow-up appointment. Patient was advised to go to ER due to worsening shortness of breath and leg swelling. Patient says that she developed swelling of his legs up having carpal tunnel procedure performed several weeks ago. Denied any cough or sputum production. Patient does have chronic cough now. no recent change in frequency. No fever no chills. No complaints of chest pain. No nausea vomiting or abdominal pain or diarrhea. Blood pressure was elevated on admission. Pulse ox was 88% and patient was tachypneic on admission. Chest x-ray showed probable subsegmental atelectasis or scarring BNP 569, troponin 0.023 Review of Systems Constitutional: Patient denies any fever or chills . No generalized weakness or weight loss. Abdomen: Patient denied nausea vomiting and diarrhea and abdominal pain. Cardiovascular: Patient denies any chest pain or short of breath no palpitations. Respiratory: Patient does have cough without sputum production. Does have shortness of breath Neurologic: Patient denied any numbness or tingling headache. Musculoskeletal: Patient denies any complaints of joint swelling or deformity. Skin: Negative Psychiatric: Negative Endocrine: No heat or cold intolerance. No recent weight gain. Genitourinary: No dysuria or hematuria. All other 14 point ROS negative except the above Past Medical History Past Medical History: Cancer, COPD, Hypertension, Respiratory Disorder Additional Past Medical History / Comment(s): Pt recently admitted to [facility] on 02/17/19 with acute exacerbation COPD. Other hx: Current sores bilateral legs/worse on R lower leg, prostate cancer with surgery, bladder surgery with cystectomy/urostomy, UTIs, L paratid wathins benign tumor, chronic low back pain, numbness/tingling bilateral lower extremities with R side worse, lower leg edema. History of Any Multi-Drug Resistant Organisms: None Reported Past Surgical History: Back Surgery, Bladder Surgery, Orthopedic Surgery, Prostate Surgery Additional Past Surgical History / Comment(s): Lower back surgery, cervical surgery, L knee arthroscopic surgery, prostatectomy, cystectomy/urostomy, Past Anesthesia/Blood Transfusion Reactions: No Reported Reaction Smoking Status: Former smoker - Past Family History Father Family Medical History: Vascular Disorder Additional Family Medical History / Comment(s): Father young from a brain aneurysm. Mother Family Medical History: Cancer Additional Family Medical History / Comment(s): Mother young with a malignant brain tumor. Brother(s) Family Medical History: Cancer Additional Family Medical History / Comment(s): Brother of malignant brain cancer (same kind as the mother). Medications and Allergies Home Medications Medication Instructions Recorded Confirmed Type amLODIPine BESYLATE 5 mg PO DAILY 02/17/19 03/08/19 History Furosemide [Lasix] 20 mg PO BID 03/08/19 03/08/19 History Ipratropium-Albuterol Nebulize 3 ml INHALATION RT-QID PRN 03/08/19 03/08/19 History [Duoneb 0.5 mg-3 mg/3 ml Soln] Potassium Chloride ER [K-Dur 10] 10 meq PO BID 03/08/19 03/08/19 History predniSONE See Taper PO DIRECTED 03/08/19 03/08/19 History Allergies Allergy/AdvReac Type Severity Reaction Status Date / Time No Known Allergies Allergy Verified 03/08/19 14:35 Physical Exam Vitals: Vital Signs Temp Pulse Pulse Resp BP BP Pulse Ox 03/08/19 16:41 97.7 F 73 18 188/84 94 L 03/08/19 16:03 97.6 F 87 18 158/92 93 L 03/08/19 16:00 73 18 03/08/19 14:51 90 18 171/86 93 L 03/08/19 14:46 85 03/08/19 14:36 88 03/08/19 14:03 91 18 94 L 03/08/19 13:59 22 L 94 H 183/90 88 L 03/08/19 12:41 22 03/08/19 12:15 98.1 F 85 18 178/98 93 L Intake and Output 03/08/19 03/08/19 03/08/19 06:59 14:59 22:59 Other: Weight 92.986 kg PHYSICAL EXAMINATION: Patient is lying in the bed comfortably, no acute distress, awake alert and oriented.. HEENT: Normocephalic. Neck is supple. Pupils reactive. Nostrils clear. Oral cavity is moist. Ears reveal no drainage. Neck reveals no JVD, carotid bruits, or thyromegaly. CHEST EXAMINATION: Trachea is central. Symmetrical expansion. Bilateral diffuse rhonchi and wheezing. CARDIAC: Normal S1, S2 with no gallops. No murmurs ABDOMEN: Soft. Bowel sounds normal. No organomegaly. No abdominal bruits. Extremities: 2+ bilateral edema. No clubbing or cyanosis Neurologically awake, alert, oriented x3 with well-coordinated movements. No focal deficits noted Skin: No rash or skin lesions. Psychiatric: Coperative. Nonsuicidal Musculoskeletal: No joint swelling or deformity. Normal range of motion. Results CBC & Chem 7: 03/08/19 12:37 03/08/19 12:37 Labs: Abnormal Lab Results - Last 24 Hours (Table) 03/08/19 03/08/19 03/08/19 Range/Units 12:37 12:37 14:01 Neutrophils # 8.1 H (1.3-7.7) k/uL Lymphocytes # 0.6 L (1.0-4.8) k/uL Glucose 128 H (74-99) mg/dL POC Glucose (mg/dL) 105 H (75-99) mg/dL Thrombosis Risk Factor Assmnt - DVT/VTE Prophylaxis DVT/VTE Prophylaxis: Pharmacologic Prophylaxis ordered - Choose All That Apply Any of the Below Risk Factors Present?: Yes Each Factor Represents 1 point: Abnormal pulmonary function (COPD), Obesity (BMI >25) Other Risk Factors: Yes Each Risk Factor Represents 2 Points: Malignancy Each Risk Factor Represents 3 Points: Age 75 years or older Other congenital or acquired thrombophilia - If yes, enter type in comment: No Thrombosis Risk Factor Assessment Total Risk Factor Score: 7 Thrombosis Risk Factor Assessment Level: High Risk Assessment and Plan Assessment: Acute hypoxic respiratory failure secondary to COPD exacerbation Acute COPD exacerbation with tracheobronchitis Morbid obesity with BMI 35.2 Hypertension uncontrolled History of prostate cancer status post resection Chronic low back pain History of carpal tunnel surgery Previous history of smoking DVT prophylaxis with heparin subcu Plan: Patient will be continued on DuoNeb's, Pulmicort and Perforomist along with IV steroids in the form of methylprednisolone 60 mg every 6 hourly. Continue with antibiotics, azithromycin. Pulmonary is consulted. Oxygen therapy and further recommendations based on the clinical course. Continue pain management. Time with Patient: Greater than 30
[2019-03-09] MEDS: FORMOTEROL FUMARATE 20 MCG/2 ML NEBU INHALATION SCH ×2 (07:17→19:47)
[2019-03-09] MEDS: IPRATROPIUM-ALBUTEROL 3 ML NEB INHALATION PRN ×4 (07:17→19:47)
[2019-03-09] MEDS: BUDESONIDE 1 MG/2 ML NEBU INHALATION SCH ×2 (07:18→19:47)
[2019-03-09] MEDS: FUROSEMIDE 20 MG TAB PO SCH ×2 (08:12→16:14)
[2019-03-09] MEDS: HEPARIN SODIUM,PORCINE 5,000 UNIT/ML 1 ML VIAL SQ SCH ×3 (08:12→23:37)
[2019-03-09] MEDS: POTASSIUM CHLORIDE ER 10 MEQ TAB.ER.PRT PO SCH ×2 (08:12→22:27)
[2019-03-09] MEDS: predniSONE 20 MG TAB PO SCH (08:13)
[2019-03-09 08:29] LABS: Basophils # (A) 0.1 k/uL (0-0.2); Basophils % (A) 1 %; Eosinophils % (A) 0 %; HCT 49.7 % (39.0-53.0); HGB 15.9 gm/dL (13.0-17.5); Lymphocytes # (A) 0.9 k/uL (1.0-4.8); Lymphocytes % (A) 10 %; MCH 30.5 pg (25.0-35.0); MCHC 31.9 g/dL (31.0-37.0); MCV 95.5 fL (80.0-100.0); Mean Platelet Volume 6.3; Monocytes # (A) 0.5 k/uL (0-1.0); Monocytes % (A) 6 %; Neutrophils # (A) 7.4 k/uL (1.3-7.7); Neutrophils % (A) 82 %; Platelet Count 216 k/uL (150-450); RBC 5.21 m/uL (4.30-5.90); RDW 13.9 % (11.5-15.5); WBC 9.1 k/uL (3.8-10.6)
[2019-03-09 08:36] LABS: African American GFR (CKD) >90 (>60 ml/min/1.73 sqM); Anion Gap 6 mmol/L; Blood Urea Nitrogen 19 mg/dL (9-20); Calcium 9.1 mg/dL (8.4-10.2); Carbon Dioxide 29 mmol/L (22-30); Chloride 103 mmol/L (98-107); Glucose 114 mg/dL (74-99); Potassium 4.9 mmol/L (3.5-5.1); Sodium 138 mmol/L (137-145)
[2019-03-09] MEDS ORDERED: amLODIPine 5 MG TAB PO SCH (09:00)
--- NOTE | 2019-03-09 10:50 | P.CNPUL ---
History of Present Illness Consult date: 03/09/19 Requesting physician: Dinesh Russell Reason for consult: hypoxemia Chief complaint: Hypoxemia History of present illness: This is a very pleasant 79-year-old gentleman who follows with Dr. Mendez as his primary care physician. He has a history of hypertension, chronic obstructive pulmonary disease, benign parotid gland tumor, chronic low back pain, prostate cancer, chronic and ongoing tobacco dependence of greater than 60 years. He follows with Dr. Hinton in our office and seen one time post hospital visit. Pulmonary function testing at that time shows evidence of severe obstructive pulmonary disease. He did have a history of a right lower lobe pneumonia. He 6 minute walk did not show significant desaturation less than 90%. He was counseled regarding the importance of complete smoking cessation. He presented here to the emergency room yesterday from a physician's office after being found to be hypoxic with O2 saturations in the 80s. He was referred to the emergency room for the same. Chest x-ray revealed probable subsegmental basilar atelectasis/scarring but no acute pulmonary process. White count 9.1. Hemoglobin 15.9. Sodium 138. Potassium 4.9. Creatinine 0.81. Troponin 0.0-3. ProBNP 569. He's been initiated on DuoNeb inhalations, Pulmicort and Perfor omist inhalations, oral prednisone, empiric antibiotics in the form of azithromycin. He is seen today in consultation on the regular medical floor. He is awake and alert in no acute distress. He is currently maintaining O2 saturation in low 90s on 2 L/m per nasal cannula. He is awake and alert in no acute distress. Review of Systems REVIEW OF SYSTEMS: CONSTITUTIONAL: Denies any recent significant weight loss or weight gain. EYES: Denies change in vision. EARS, NOSE, MOUTH, THROAT: Denies headaches, denies sore throat. CARDIOVASCULAR: Denies chest pain, palpitations or syncopal episodes. RESPIRATORY: Positive for shortness of breath, cough, congestion no hemoptysis. GASTROINTESTINAL: Denies change in appetite, denies abdominal pain GENITOURINARY: Denies hematuria, denies infections. MUSKULOSKELETAL: Denies pain, denies swelling. INTEGUMENTARY: Denies rash, denies eczema. NEUROLOGICAL: Denies recent memory loss, no recent seizure activity. PSYCHIATRIC: Denies anxiety, denies depression. HEMATOLOGIC/LYMPHATIC: Denies anemia, denies enlarged lymph nodes. Past Medical History Past Medical History: Cancer, COPD, Hypertension, Respiratory Disorder Additional Past Medical History / Comment(s): Pt recently admitted to [facility] on 02/17/19 with acute exacerbation COPD. Other hx: Current sores bilateral legs/worse on R lower leg, prostate cancer with surgery, bladder surgery with cystectomy/urostomy, UTIs, L paratid wathins benign tumor, chronic low back pain, numbness/tingling bilateral lower extremities with R side worse, lower leg edema. History of Any Multi-Drug Resistant Organisms: None Reported Past Surgical History: Back Surgery, Bladder Surgery, Orthopedic Surgery, Prostate Surgery Additional Past Surgical History / Comment(s): Lower back surgery, cervical surgery, L knee arthroscopic surgery, prostatectomy, cystectomy/urostomy, Past Anesthesia/Blood Transfusion Reactions: No Reported Reaction Smoking Status: Former smoker - Past Family History Father Family Medical History: Vascular Disorder Additional Family Medical History / Comment(s): Father young from a brain aneurysm. Mother Family Medical History: Cancer Additional Family Medical History / Comment(s): Mother young with a malignant brain tumor. Brother(s) Family Medical History: Cancer Additional Family Medical History / Comment(s): Brother of malignant brain cancer (same kind as the mother). Medications and Allergies Home Medications Medication Instructions Recorded Confirmed Type amLODIPine BESYLATE 5 mg PO DAILY 02/17/19 03/08/19 History Furosemide [Lasix] 20 mg PO BID 03/08/19 03/08/19 History Ipratropium-Albuterol Nebulize 3 ml INHALATION RT-QID PRN 03/08/19 03/08/19 History [Duoneb 0.5 mg-3 mg/3 ml Soln] Potassium Chloride ER [K-Dur 10] 10 meq PO BID 03/08/19 03/08/19 History predniSONE See Taper PO DIRECTED 03/08/19 03/08/19 History Allergies Allergy/AdvReac Type Severity Reaction Status Date / Time No Known Allergies Allergy Verified 03/08/19 14:35 Physical Exam Vitals: Vital Signs Temp Pulse Pulse Pulse Pulse Pulse Pulse 03/09/19 09:08 85 95 101 H 96 03/09/19 07:38 88 10/24/19 07:28 88 03/09/19 07:18 88 03/09/19 07:11 97.9 F 85 03/09/19 05:00 98.8 F 76 03/08/19 20:56 97.5 F L 86 03/08/19 16:41 97.7 F 73 03/08/19 16:03 97.6 F 87 03/08/19 16:00 73 03/08/19 14:51 90 03/08/19 14:46 85 03/08/19 14:36 88 03/08/19 14:03 91 03/08/19 13:59 22 L 03/08/19 12:41 03/08/19 12:15 98.1 F 85 Pulse Resp BP BP Pulse Ox Pulse Ox Pulse Ox 03/09/19 09:08 93 93 L 92 L 03/09/19 07:38 03/09/19 07:28 03/09/19 07:18 03/09/19 07:11 18 181/92 95 03/09/19 05:00 20 161/66 94 L 03/08/19 20:56 20 136/83 92 L 03/08/19 16:41 18 188/84 94 L 03/08/19 16:03 18 158/92 93 L 03/08/19 16:00 18 03/08/19 14:51 18 171/86 93 L 03/08/19 14:46 03/08/19 14:36 03/08/19 14:03 18 94 L 03/08/19 13:59 94 H 183/90 88 L 03/08/19 12:41 22 03/08/19 12:15 18 178/98 93 L Pulse Ox Pulse Ox Pulse Ox 03/09/19 09:08 92 L 92 L 91 L 03/09/19 07:38 03/09/19 07:28 03/09/19 07:18 03/09/19 07:11 03/09/19 05:00 03/08/19 20:56 03/08/19 16:41 03/08/19 16:03 03/08/19 16:00 03/08/19 14:51 03/08/19 14:46 03/08/19 14:36 03/08/19 14:03 03/08/19 13:59 03/08/19 12:41 03/08/19 12:15 Intake and Output 03/08/19 03/09/19 03/09/19 22:59 06:59 14:59 Intake Total 590 1070 Output Total 400 600 Balance 190 470 Intake: Oral 590 1070 Output: Urine 400 600 Other: # Voids 3 GENERAL EXAM: Alert, pleasant 79-year-old gentleman, on oxygen at 2 L/m per nasal cannula, comfortable in no apparent distress. HEAD: Normocephalic. EYES: Normal reaction of pupils, equal size. NOSE: Clear with pink turbinates. THROAT: No erythema or exudates. NECK: No masses, no JVD. CHEST: No chest wall deformity. LUNGS: Equal air entry with bilateral end expiratory wheeze, diminished CVS: S1 and S2 normal with no audible murmur, regular rhythm. ABDOMEN: No hepatosplenomegaly, normal bowel sounds, no guarding or rigidity. SPINE: No scoliosis or deformity SKIN: No rashes CENTRAL NERVOUS SYSTEM: No focal deficits, tone is normal in all 4 extremities. EXTREMITIES: There is no peripheral edema. No clubbing, no cyanosis. Peripheral pulses are intact. Results - Laboratory Findings CBC and BMP: 03/09/19 07:47 03/09/19 07:47 PT/INR, D-dimer PT 9.9 sec (9.0-12.0) 03/08/19 12:37 INR 0.9 (<1.2) 03/08/19 12:37 Abnormal lab findings: Abnormal Labs 03/08/19 03/08/19 03/08/19 12:37 12:37 14:01 Neutrophils # 8.1 H Lymphocytes # 0.6 L Glucose 128 H POC Glucose (mg/dL) 105 H 03/09/19 03/09/19 07:47 07:47 Neutrophils # Lymphocytes # 0.9 L Glucose 114 H POC Glucose (mg/dL) - Diagnostic Findings Chest x-ray: image reviewed Assessment and Plan Assessment: Impression: #1 Acute hypoxemic respiratory failure secondary to an acute exacerbation of chronic obstructive pulmonary disease. #2 Chronic and ongoing heavy tobacco dependence for 60 years. #3 Morbid obesity. #4 History of prostate cancer status post resection. #5 Hypertension. #6 Chronic back pain. He #7 Recent carpal tunnel surgery. Plan: The patient was seen and evaluated by Dr. Hinton. Chest x-ray and labs reviewed. We'll continue his treatment for her COPD exacerbation. The patient is educated regarding the importance of complete smoking cessation. We will increase his activity as tolerated. Assessment possible home oxygen. We will continue to follow and make further recommendations based on his clinical status. I, the cosigning physician, performed a history & physical examination of the patient. Lungs sounds bilateral end expiratory wheeze, diminished. Maintaining good O2 saturations in the 90s on 2 L/m per nasal cannula. I discussed the assessment and plan of care with my nurse practitioner, Christina Hinton. I attest to the above consultation as dictated by her. Time with Patient: Greater than 30
[2019-03-09] MEDS: AZITHROMYCIN 500 MG TAB PO SCH (16:14)
--- NOTE | 2019-03-09 23:21 | P.PN ---
Subjective Progress Note Date: 03/09/19 Principal diagnosis: Acute COPD exacerbation Acute hypoxic respiratory failure Patient is a 79-year-old male with a known history of COPD, hypertension, history of prostate cancer status post resection, chronic low back pain and bilateral lower extremity edema came to ER with the complaints of shortness of breath. Patient was previously admitted to the hospital early this month due to acute COPD exacerbation. Alex coker was seen at Dr. Cameron's office for follow-up appointment. Patient was advised to go to ER due to worsening shortness of breath and leg swelling. Patient says that she developed swelling of his legs up having carpal tunnel procedure performed several weeks ago. Denied any cough or sputum production. Patient does have chronic cough now. no recent change in frequency. No fever no chills. No complaints of chest pain. No nausea vomiting or abdominal pain or diarrhea. Blood pressure was elevated on admission. Pulse ox was 88% and patient was tachypneic on admission. Chest x-ray showed probable subsegmental atelectasis or scarring BNP 569, troponin 0.023 03/09/2019 Patient is resting comfortably on the bed. Currently saturating well on nasal cannula oxygen at 2 L. Breathing status is improving. Currently being continued on DuoNeb's, IV steroids and Pulmicort breathing treatments. Blood pressure is controlled. Continued on Norvasc, Lasix and lisinopril will be added. will discontinue supplemental potassium. Pulmonary is following. No chest pain. No nausea vomiting or abdominal pain. Tolerating oral intake. Leg swelling seems to be improving. Current medications reviewed. Objective - Vital Signs Vital signs: Vital Signs Temp 98.1 F 03/09/19 12:22 Pulse 91 03/09/19 12:22 Resp 17 03/09/19 12:22 BP 179/86 03/09/19 12:22 Pulse Ox 90 L 03/09/19 12:22 Intake & Output 03/08/19 03/09/19 03/09/19 18:59 06:59 18:59 Intake Total 1660 Output Total 1000 Balance 660 Weight 92.986 kg Intake: Oral 1660 Output: Urine 1000 Other: # Voids 3 1 - Exam PHYSICAL EXAMINATION: Patient is lying in the bed comfortably, no acute distress, awake alert and oriented.. HEENT: Normocephalic. Neck is supple. Pupils reactive. Nostrils clear. Oral cavity is moist. Ears reveal no drainage. Neck reveals no JVD, carotid bruits, or thyromegaly. CHEST EXAMINATION: Trachea is central. Symmetrical expansion. biLateral expiratory wheezing and scattered rhonchi ABDOMEN: Soft. Bowel sounds normal. No organomegaly. No abdominal bruits. Extremities: Trace edema. No clubbing or cyanosis Neurologically awake, alert, oriented x3 with well-coordinated movements. No focal deficits noted Skin: No rash or skin lesions. Psychiatric: Coperative. Nonsuicidal Musculoskeletal: No joint swelling or deformity. Normal range of motion. - Labs CBC & Chem 7: 03/09/19 07:47 03/09/19 07:47 Labs: Abnormal Lab Results - Last 24 Hours (Table) 03/09/19 03/09/19 Range/Units 07:47 07:47 Lymphocytes # 0.9 L (1.0-4.8) k/uL Glucose 114 H (74-99) mg/dL Assessment and Plan Assessment: Acute hypoxic respiratory failure secondary to COPD exacerbation Acute COPD exacerbation with tracheobronchitis Morbid obesity with BMI 35.2 Hypertension uncontrolled History of prostate cancer status post resection Chronic low back pain History of carpal tunnel surgery Previous history of smoking DVT prophylaxis with heparin subcu Plan: Patient will be continued on DuoNeb's, Pulmicort and Perforomist along with IV steroids in the form of methylprednisolone 60 mg every 6 hourly. Continue with antibiotics, azithromycin. Pulmonary is following. Oxygen therapy and further recommendations based on the clinical course. Continue pain management. Time with Patient: Greater than 30
[2019-03-09] MEDS: LISINOPRIL 5 MG TAB PO SCH (23:36)
[2019-03-10] MEDS: HEPARIN SODIUM,PORCINE 5,000 UNIT/ML 1 ML VIAL SQ SCH (07:56)
[2019-03-10] MEDS: predniSONE 20 MG TAB PO SCH (07:57)
[2019-03-10] MEDS: FUROSEMIDE 20 MG TAB PO SCH (07:57)
[2019-03-10] MEDS: LISINOPRIL 5 MG TAB PO SCH (07:57)
[2019-03-10] MEDS ORDERED: amLODIPine 5 MG TAB PO SCH (09:00)
[2019-03-10] MEDS: FORMOTEROL FUMARATE 20 MCG/2 ML NEBU INHALATION SCH (09:06)
[2019-03-10] MEDS: IPRATROPIUM-ALBUTEROL 3 ML NEB INHALATION PRN (09:06)
[2019-03-10] MEDS: BUDESONIDE 1 MG/2 ML NEBU INHALATION SCH (09:06)
--- NOTE | 2019-03-10 10:59 | P.PN ---
Subjective Progress Note Date: 03/10/19 Principal diagnosis: Acute hypoxic respiratory failure secondary to an acute exacerbation of chronic obstructive pulmonary disease. This is a very pleasant 79-year-old gentleman who follows with Dr. Mendez as his primary care physician. He has a history of hypertension, chronic obstructive pulmonary disease, benign parotid gland tumor, chronic low back pain, prostate cancer, chronic and ongoing tobacco dependence of greater than 60 years. He follows with Dr. Hinton in our office and seen one time post hospital visit. Pulmonary function testing at that time shows evidence of severe obstructive pulmonary disease. He did have a history of a right lower lobe pneumonia. He 6 minute walk did not show significant desaturation less than 90%. He was counseled regarding the importance of complete smoking cessation. He presented here to the emergency room yesterday from a physician's office after being found to be hypoxic with O2 saturations in the 80s. He was referred to the emergency room for the same. Chest x-ray revealed probable subsegmental basilar atelectasis/scarring but no acute pulmonary process. White count 9.1. Hemoglobin 15.9. Sodium 138. Potassium 4.9. Creatinine 0.81. Troponin 0.0-3. ProBNP 569. He's been initiated on DuoNeb inhalations, Pulmicort and Perforomist inhalations, oral prednisone, empiric antibiotics in the form of azithromycin. He is seen today in consultation on the regular medical floor. He is awake and alert in no acute distress. He is currently maintaining O2 saturation in low 90s on 2 L/m per nasal cannula. He is awake and alert in no acute distress. The patient is seen today 03/10/2019 in follow-up on the regular medical floor. He's been up ambulating with assistance. O2 saturations dropping to 86% on room air with exercise. He is less short of breath today as compared to yesterday. No worsening cough or congestion. He's been continued on DuoNeb inhalations, Pulmicort and Perforomist inhalations, prednisone, empiric antibiotics. Objective - Vital Signs Vital signs: Vital Signs Temp 98.5 F 03/10/19 07:02 Pulse 91 03/10/19 10:39 Resp 19 03/10/19 10:39 BP 170/71 03/10/19 10:39 Pulse Ox 93 L 03/10/19 10:39 Intake & Output 03/09/19 03/10/19 03/10/19 18:59 06:59 18:59 Intake Total 1180 Output Total 600 Balance 580 Intake: Oral 1180 Output: Urine 600 Other: # Voids 1 - Exam GENERAL EXAM: Alert, pleasant 79-year-old gentleman, on oxygen at 2 L/m per nasal cannula, comfortable in no apparent distress. HEAD: Normocephalic. EYES: Normal reaction of pupils, equal size. NOSE: Clear with pink turbinates. THROAT: No erythema or exudates. NECK: No masses, no JVD. CHEST: No chest wall deformity. LUNGS: Equal air entry with bilateral end expiratory wheeze, diminished CVS: S1 and S2 normal with no audible murmur, regular rhythm. ABDOMEN: No hepatosplenomegaly, normal bowel sounds, no guarding or rigidity. SPINE: No scoliosis or deformity SKIN: No rashes CENTRAL NERVOUS SYSTEM: No focal deficits, tone is normal in all 4 extremities. EXTREMITIES: There is no peripheral edema. No clubbing, no cyanosis. Peripheral pulses are intact. - Labs CBC & Chem 7: 03/09/19 07:47 03/09/19 07:47 Assessment and Plan Assessment: Impression: #1 Acute hypoxemic respiratory failure secondary to an acute exacerbation of chronic obstructive pulmonary disease. #2 Chronic and ongoing heavy tobacco dependence for 60 years. #3 Morbid obesity. #4 History of prostate cancer status post resection. #5 Hypertension. #6 Chronic back pain. He #7 Recent carpal tunnel surgery. Plan: The patient was seen and evaluated by Dr. Hinton. The patient is quite anxious to go home today. He may require home oxygen. He should be on nebulizer with D uoNeb inhalations 4 times a day when necessary, Symbicort, prednisone taper. He has an appointment with Dr. Hinton 03/17/2019. He is encouraged to call sooner with any recurrence of symptoms or other questions or concerns. I, the cosigning physician, performed a history & physical examination of the patient. Lungs sounds bilateral end expiratory wheeze, diminished. Maintaining good O2 saturations in the 90s on 2 L/m per nasal cannula. I discussed the assessment and plan of care with my nurse practitioner, Christina Hinton. I attest to the above note as dictated by her.
[2019-03-10] MEDS ORDERED: FUROSEMIDE 10 MG/ML 4 ML VIAL IV STA (11:42)
[2019-03-10 12:48] VITALS: BP 161/73; PULSE 90; RESP 15; TEMP 97.6
--- NOTE | 2019-03-10 13:34 | ECHOF ---
Referral Reason:b/l Leg swelling MEASUREMENTS -------- HEIGHT: 162.6 cm WEIGHT: 93.0 kg BP: 161/66 IVSd: 1.5 cm (0.6 - 1.1) LVIDd: 3.4 cm (3.9 - 5.3) LVPWd: 1.3 cm (0.6 - 1.1) IVSs: 2.0 cm LVIDs: 1.7 cm LVPWs: 1.9 cm LAESV Index (A-L): 32.22 ml/m Ao Diam: 3.0 cm (2.0 - 3.7) AV Cusp: 1.6 cm (1.5 - 2.6) LA Diam: 3.5 cm (2.7 - 3.8) MV EXCURSION: 10.412 mm (> 18.000) MV EF SLOPE: 85 mm/s (70 - 150) EPSS: 0.5 cm RAP: 15.00 mmHg RVSP: 19.06 mmHg FINDINGS -------- Atrial fibrillation. This was a technically adequate study. The left ventricular size is normal. There is moderate concentric left ventricular hypertrophy. O verall left ventricular systolic function is normal with, an EF between 55 - 60 %. Left ventricular fillimg pressure cannot be estimated due to Atrial fibrillation. The right ventricle is normal in size. LA is midly dilated 29-33ml/m2. The right atrial size is normal. The aortic valve is trileaflet and appears structurally normal. The mitral valve is normal. The mitral valve leaflets are mildly thickened. There is trace mitral regurgitation. The tricuspid valve appears structurally normal. Trace tricuspid regurgitation present. Right candace tricular systolic pressure is normal at < 35 mmHg. There is no pulmonic regurgitation present. The aortic root size is normal. The inferior vena cava is mildly dilated. There is no pericardial effusion. CONCLUSIONS -------- 1. Atrial fibrillation. 2. This was a technically adequate study. 3. The left ventricular size is normal. 4. There is moderate concentric left ventricular hypertrophy. 5. Overall left ventricular systolic function is normal with, an EF between 55 - 60 %. 6. Left ventricular fillimg pressure cannot be estimated due to Atrial fibrillation. 7. The right ventricle is normal in size. 8. LA is midly dilated 29-33ml/m2. 9. The right atrial size is normal. 10. The aortic valve is trileaflet and appears structurally normal. 11. The mitral valve is normal. 12. The mitral valve leaflets are mildly thickened. 13. There is trace mitral regurgitation. 14. The tricuspid valve appears structurally normal. 15. Trace tricuspid regurgitation present. 16. Right ventricular systolic pressure is normal at < 35 mmHg. 17. There is no pulmonic regurgitation present. 18. The aortic root size is normal. 19. The inferior vena cava is mildly dilated. 20. There is no pericardial effusion. SENIOR HARDWARE DESIGN ENGINEER: Daysi Montana RDCS
--- NOTE | 2019-03-10 15:04 | P.DS ---
Providers Date of admission: 03/08/19 14:13 Expected date of discharge: 03/10/19 Attending physician: Dinesh Russell Consults: 03/08/19 14:13 Consult Physician Routine Consulting Provider: Damien Centeno Consult Reason/Comments: hypoxia, copd Do you want consulting provider notified?: Yes Primary care physician: Nisha Harrison [facility] Course: Final diagnosis Acute hypoxic respiratory failure secondary to COPD exacerbation Acute COPD exacerbation with tracheobronchitis Morbid obesity with BMI 35.2 Hypertension uncontrolled History of prostate cancer status post resection Chronic low back pain History of carpal tunnel surgery Previous history of smoking DVT prophylaxis Discharge disposition Patient is being discharged in a stable condition with extremely guarded prognosis to home and will follow-up with Dr. Hinton on March 17 or sooner as scheduled. Patient will continue with the oral antibiotics in the form of Zithromax as well as a prednisone taper and Symbicort upon discharge. Total time taken is 35 minutes. History of present illness This is a 71-year-old male with a known history of COPD who was recently admitted with increasing shortness of breath and leg swelling and is being closely monitored. During hospitalization patient continued to have low oxygen saturations in the high 80s low 90s and a home O2 eval was done today showing the patient may benefit from home oxygen and patient is refusing at this time. Patient would like to go home and is persistent about going home. Patient is willing to leave A. Patient's breathing has slightly improved and will continue on oral steroids, DuoNeb's, Symbicort, and oral antibiotics in the form of Zithromax upon discharge. Patient was given a one-time dose of IV Lasix for his leg swelling which is showing some improvement. Patient will be resumed on his normal dose of Lasix 20 mg twice daily. Patient will follow-up with Dr. Hinton on a schedule appointment March 17 or sooner if symptoms persist. Discussed with the patient at length about refraining from any tobacco use and attempted to talk to him about requiring home oxygen and patient refused multiple times stating "I'll just take it easy". Currently patient's condition is stable and will be discharged today with extremely guarded prognosis. On exam vital signs are stable. Temp is 97.6F, pulse is 90, respirations are 15, blood pressure is 161/73, oxygen saturation is 90% on 2 L. Cardio S1 and S2 are present. Respiratory system shows diminished breath sounds at the bases with expiratory wheezing noted. Abdomen is soft, obese, non-tender. Nervous system shows no focal deficits. Please refer to medication reconciliation sheet for a list of medications. Patient Condition at Discharge: Fair Plan - Discharge Summary Discharge Rx Participant: No New Discharge Prescriptions: New amLODIPine [Norvasc] 10 mg PO DAILY 30 Days #30 tab predniSONE 10 mg PO DIRECTED #30 tab Budesonide/Formoterol Fumarate [Symbicort 160-4.5 Mcg Inhaler] 1 puff IH BID #1 hfa.aer.ad Azithromycin [Zithromax] 500 mg PO Q24H 5 Days #5 tab Continue Potassium Chloride ER [K-Dur 10] 10 meq PO BID Furosemide [Lasix] 20 mg PO BID Ipratropium-Albuterol Nebulize [Duoneb 0.5 mg-3 mg/3 ml Soln] 3 ml INHALATION RT-QID PRN PRN Reason: Shortness Of Breath Discontinued amLODIPine BESYLATE 5 mg PO DAILY predniSONE See Taper PO DIRECTED Discharge Medication List Furosemide [Lasix] 20 mg PO BID 03/08/19 [History] Ipratropium-Albuterol Nebulize [Duoneb 0.5 mg-3 mg/3 ml Soln] 3 ml INHALATION RT-QID PRN 03/08/19 [History] Potassium Chloride ER [K-Dur 10] 10 meq PO BID 03/08/19 [History] Azithromycin [Zithromax] 500 mg PO Q24H 5 Days #5 tab 03/10/19 [Rx] Budesonide/Formoterol Fumarate [Symbicort 160-4.5 Mcg Inhaler] 1 puff IH BID #1 hfa.aer.ad 03/10/19 [Rx] amLODIPine [Norvasc] 10 mg PO DAILY 30 Days #30 tab 03/10/19 [Rx] predniSONE 10 mg PO DIRECTED #30 tab 03/10/19 [Rx] Follow up Appointment(s)/Referral(s): Yuval Cameron MD [Primary Care Provider] - 1-2 days Jovany Hinton MD [STAFF PHYSICIAN] - 1 Week Activity/Diet/Wound Care/Special Instructions: pt will be sent home on home o2 at 2L s/t hypoxia s/t COPD Activity Limited until follow-up Follow-up with primary care provider upon discharge Keep appointment with Dr. Hinton for March 17 or call the office sooner if symptoms persist Avoid tobacco use Continue current diet Discharge Disposition: HOME SELF-CARE
[2019-03-10] MEDS: AZITHROMYCIN 500 MG TAB PO SCH (15:22)
== END 2019-03-10 15:45 | disposition home or self-care (01) | DRG 190 ==
LOC: EC 12:12 → 3NMEDONC 14:13
PROVIDERS: ADMIT Internal Medicine; ATTEND Internal Medicine
DX: J44.1 Chronic obstructive pulmonary disease with (acute) exacerbation (principal); J96.01 Acute respiratory failure with hypoxia; L97.929 Non-pressure chronic ulcer of unspecified part of left lower leg with unspecified severity; L97.919 Non-pressure chronic ulcer of unspecified part of right lower leg with unspecified severity; G89.29 Other chronic pain; I10 Essential (primary) hypertension; E66.01 Morbid (severe) obesity due to excess calories; Z68.35 Body mass index [BMI] 35.0-35.9, adult; Z79.899 Other long term (current) drug therapy; Z80.8 Family history of malignant neoplasm of other organs or systems; Z85.46 Personal history of malignant neoplasm of prostate; Z85.51 Personal history of malignant neoplasm of bladder; Z71.6 Tobacco abuse counseling; F17.210 Nicotine dependence, cigarettes, uncomplicated; M54.5 Low back pain; D11.0 Benign neoplasm of parotid gland; Z90.79 Acquired absence of other genital organ(s); M79.89 Other specified soft tissue disorders; Z87.440 Personal history of urinary (tract) infections
CPT/HCPCS: 36415; 71046; 80048; 80053; 83735; 83880; 84443; 84484; 85025; 85610; 85730; 93005; 93306; 94640; 94760; 99285

== ENCOUNTER → 2019-03-31 | Outpatient (CLI) | payer MEDICARE ==
[2019-03-31 17:00] LABS: HCT 41.9 % (39.0-53.0); HGB 13.8 gm/dL (13.0-17.5); MCHC 32.9 g/dL (31.0-37.0); MCV 94.2 fL (80.0-100.0); Mean Platelet Volume 6.1; Platelet Count 188 k/uL (150-450); RBC 4.45 m/uL (4.30-5.90); RDW 13.8 % (11.5-15.5); WBC 7.7 k/uL (3.8-10.6)
[2019-03-31 23:22] LABS: Anion Gap 8.1 mmol/L (4.00-12.00); Carbon Dioxide 26.9 mmol/L (21.6-31.8); Potassium 4.5 mmol/L (3.5-5.5)
== END | disposition home or self-care (01) ==
LOC: LABWHC1 16:32
PROVIDERS: ATTEND Internal Medicine Cardiovascular Disease
DX: I50.32 Chronic diastolic (congestive) heart failure (principal)
CPT/HCPCS: 36415; 80051; 84520; 85027

== ENCOUNTER → 2019-10-23 | Outpatient (CLI) | payer MEDICARE ==
--- NOTE | 2019-10-24 14:27 | XR ---
EXAMINATION TYPE: XR chest 2V DATE OF EXAM: 10/23/2019 COMPARISON: Prior chest x-ray 03/08/2019 HISTORY: Near syncope TECHNIQUE: Frontal and lateral views of the chest are obtained. FINDINGS: Similar findings to prior exam. Postop changes are noted to the lower spine. Multilevel sp ondylosis present within the thoracic spine. There may be eventration of the hemidiaphragms. Heart si ze is stable. No evident pneumothorax or pleural effusion. Cardiomediastinal silhouette, pulmonary va scularity and luciano are stable. Minimal patchy basilar density suspected posteriorly. IMPRESSION: Findings are similar to prior exam. Correlate to exclude pneumonia, there may be subsegm ental basilar atelectatic changes. Follow-up recommended.
== END | disposition home or self-care (01) ==
LOC: RADXRMAIN 17:29
PROVIDERS: ATTEND Family Medicine
DX: R55 Syncope and collapse (principal)
CPT/HCPCS: 71046

== ENCOUNTER → 2019-11-16 | Outpatient (CLI) | payer MEDICARE ==
--- NOTE | 2019-11-16 11:17 | US ---
EXAMINATION TYPE: US carotid duplex BILAT DATE OF EXAM: 11/16/2019 COMPARISON: NONE CLINICAL HISTORY: afib I48.91, R55 chest pain. patient was unsure why he was here, syncope EXAM MEASUREMENTS: RIGHT: Peak Systolic Velocity (PSV) cm/sec ----- Right CCA: 60.7 ----- Right ICA: 60.7 ----- Right ECA: 67.1 ICA/CCA ratio: 1.0 RIGHT: End Diastole cm/sec ----- Right CCA: 10.9 ----- Right ICA: 11.6 ----- Right ECA: 15.9 LEFT: Peak Systolic Velocity (PSV) cm/sec ----- Left CCA: 64.3 ----- Left ICA: 50.6 ----- Left ECA: 75.3 ICA/CCA ratio: 0.8 LEFT: End Diastole cm/sec ----- Left CCA: 13.7 ----- Left ICA: 10.6 ----- Left ECA: 12.5 VERTEBRALS (direction of flow): Right Vertebral: Antegrade Left Vertebral: Antegrade Rhythm: question an arrhythmia Difficult exam due to heavy breathing, mild heterogeneous plaque with no significant plaque seen. Grayscale, color Doppler, spectral Doppler imaging performed of the carotid arteries. Waveform analys is does not show significant stenosis of the internal carotid arteries. IMPRESSION: No hemodynamic significant stenosis of the proximal internal carotid arteries by Doppler criteria, an indirect measurement of carotid stenosis. I question an arrhythmia
--- NOTE | 2019-11-16 12:51 | ECHOF ---
Referral Reason:afib I48.91, R55 chest pain MEASUREMENTS -------- HEIGHT: 167.6 cm WEIGHT: 83.0 kg BP: RVIDd: 2.8 cm (< 3.3) IVSd: 1.9 cm (0.6 - 1.1) LVIDd: 3.4 cm (3.9 - 5.3) LVPWd: 1.5 cm (0.6 - 1.1) IVSs: 1.8 cm LVIDs: 2.3 cm LVPWs: 1.5 cm LAESV Index (A-L): 28.19 ml/m Ao Diam: 3.4 cm (2.0 - 3.7) AV Cusp: 1.8 cm (1.5 - 2.6) LA Diam: 3.4 cm (2.7 - 3.8) MV EXCURSION: 13.536 mm (> 18.000) MV EF SLOPE: 77 mm/s (70 - 150) EPSS: 0.5 cm MV E Constantine: 1.04 m/s MV DecT: 157 ms MV A Constantine: 0.21 m/s MV E/A Ratio: 4.90 RAP: 20.00 mmHg RVSP: 50.92 mmHg FINDINGS -------- Undetermined rhythm. This was a technically adequate study. The left ventricular size is normal. There is moderate concentric left ventricular hypertrophy. O verall left ventricular systolic function is normal with, an EF between 55 - 60 %. The right ventricle is normal in size. The left atrial size is normal. Normal LA size by volume 22+/-6 ml/m2. The right atrial size is normal. Aortic valve is trileaflet and is mildly thickened. The mitral valve is normal. The mitral valve leaflets are mildly thickened. Mild mitral annular c alcification present. Mild mitral regurgitation is present. The tricuspid valve appears structurally normal. Mild tricuspid regurgitation present. There is m oderate pulmonary hypertension. The right ventricular systolic pressure, as measured by Doppler, is 50.92mmHg. There is no pulmonic regurgitation present. The aortic root size is normal. The inferior vena cava is dilated with no significant inspiratory collapse which is consistent estima munir right atrial pressure of >20 mmHg. There is no pericardial effusion. CONCLUSIONS -------- 1. Undetermined rhythm. 2. This was a technically adequate study. 3. The left ventricular size is normal. 4. There is moderate concentric left ventricular hypertrophy. 5. Overall left ventricular systolic function is normal with, an EF between 55 - 60 %. 6. The right ventricle is normal in size. 7. The left atrial size is normal. 8. Normal LA size by volume 22+/-6 ml/m2. 9. The right atrial size is normal. 10. Aortic valve is trileaflet and is mildly thickened. 11. The mitral valve is normal. 12. The mitral valve leaflets are mildly thickened. 13. Mild mitral annular calcification present. 14. Mild mitral regurgitation is present. 15. The tricuspid valve appears structurally normal. 16. Mild tricuspid regurgitation present. 17. There is moderate pulmonary hypertension. 18. The right ventricular systolic pressure, as measured by Doppler, is 50.92mmHg. 19. There is no pulmonic regurgitation present. 20. The aortic root size is normal. 21. The inferior vena cava is dilated with no significant inspiratory collapse which is consistent es timated right atrial pressure of >20 mmHg. 22. There is no pericardial effusion. PRODUCTION SOUND MIXER: Daysi [place] RDCS
== END | disposition home or self-care (01) ==
LOC: RADECHMAIN 07:15
PROVIDERS: ATTEND Family Medicine
DX: I08.1 Rheumatic disorders of both mitral and tricuspid valves (principal); I27.20 Pulmonary hypertension, unspecified; R55 Syncope and collapse
CPT/HCPCS: 93306; 93880

== ENCOUNTER → 2019-11-16 | Outpatient (CLI) | payer MEDICARE ==
[2019-11-16 06:46] LABS: African American GFR (CKD) >90 (>60 ml/min/1.73 sqM); Blood Urea Nitrogen 22 mg/dL (9-20); Non-African American GFR(CKD) 83 (>60 ml/min/1.73 sqM)
--- NOTE | 2019-11-16 08:56 | CT ---
EXAMINATION TYPE: CT brain wo/w con DATE OF EXAM: 11/16/2019 COMPARISON: 04/22/2017 HISTORY: loss of balance CT DLP: 1973.7mGycm CONTRAST: CT scan of the head is performed without and with IV Contrast, patient injected with 100 mL of Isovue 300. Unenhanced followed by contrast enhanced CT of the brain is submitted for evaluation. The ventricles are mildly enlarged not unusual for this patient's age group.. There is no evidence for intracrania l hemorrhage or extra-axial collection. No mass effects are identified. Visualized bony calvarium i s intact. Contrast is administered and no enhancing lesions are detected. No pathologic enhancement is identified. If symptoms persist consider MRI. IMPRESSION: No enhancing lesions seen. Age-related atrophic and chronic small vessel ischemic change.
--- NOTE | 2019-11-16 09:13 | CT ---
EXAMINATION TYPE: CT chest wo/w con DATE OF EXAM: 11/16/2019 COMPARISON: None HISTORY: chest pain CT DLP: 1120.1 mGycm Automated exposure control for dose reduction was used. CONTRAST: CT scan of the chest is performed without and with IV Contrast, patient injected with 100 mL of Isovu e 300. FINDINGS: LUNGS: Patchy density left upper lobe anteriorly may reflect pneumonia versus postinflammatory change . The remainder of the lungs are clear. Hyperinflation is compatible with COPD. No evidence for mass or nodule. There is no pleural effusion or pneumothorax seen. The tracheobronchial tree is patent. MEDIASTINUM: There are no greater than 1 cm hilar or mediastinal lymph nodes. No pericardial effusi on is seen. Thoracic aorta is of normal caliber. The heart is not enlarged. UPPER ABDOMEN: Multicystic changes of the kidneys. OTHER: No additional significant abnormality is seen. IMPRESSION: Patchy density left upper lobe anteriorly may reflect pneumonia versus postinflammatory change. The remainder of the lungs are clear. Hyperinflation is compatible with COPD.
== END | disposition home or self-care (01) ==
LOC: RADCTMAIN 06:08
PROVIDERS: ATTEND Family Medicine
DX: G31.1 Senile degeneration of brain, not elsewhere classified (principal); R55 Syncope and collapse; I48.91 Unspecified atrial fibrillation; R26.89 Other abnormalities of gait and mobility
CPT/HCPCS: 82565; 84520; 70470; 71270; 36415; Q9967

== ENCOUNTER → 2019-12-27 | Outpatient (CLI) | payer MEDICARE ==
[2019-12-27 14:56] LABS: HCT 53.4 % (39.0-53.0); HGB 17.1 gm/dL (13.0-17.5); MCHC 31.9 g/dL (31.0-37.0); MCV 93.9 fL (80.0-100.0); Platelet Count 230 k/uL (150-450); RBC 5.69 m/uL (4.30-5.90); RDW 14.5 % (11.5-15.5); WBC 7.6 k/uL (3.8-10.6)
[2019-12-27 20:14] LABS: African American GFR (CKD) 83.2 (60.0-200.0); Anion Gap 12.7 mmol/L (4.00-12.00); Calcium 9.1 mg/dL (8.7-10.3); Carbon Dioxide 21.3 mmol/L (21.6-31.8); Non-African American GFR(CKD) 71.8 (60.0-200.0); Potassium 4.5 mmol/L (3.5-5.5)
== END | disposition home or self-care (01) ==
LOC: LABWHC1 13:47
DX: I48.91 Unspecified atrial fibrillation (principal)
CPT/HCPCS: 36415; 80048; 85027

== ENCOUNTER → 2020-03-14 | Outpatient (CLI) | payer MEDICARE ==
--- NOTE | 2020-03-14 11:35 | XR ---
EXAMINATION TYPE: XR chest 2V DATE OF EXAM: 03/14/2020 COMPARISON: Prior chest x-ray 10/23/2019 HISTORY: J 44.0, COPD TECHNIQUE: Frontal and lateral views of the chest are obtained. FINDINGS: There is no focal air space opacity, pleural effusion, or pneumothorax seen. Some linear b ands in the left lung consistent with scar. The cardiac silhouette size is within normal limits. Th e osseous structures are intact. Thoracic spondylosis is again seen. Aorta is dense. Postop changes a re noted in the lumbar spine. IMPRESSION: No acute cardiopulmonary process.
== END | disposition home or self-care (01) ==
LOC: RADXRMAIN 09:13
PROVIDERS: ATTEND Family Medicine
DX: J44.0 Chronic obstructive pulmonary disease with (acute) lower respiratory infection (principal)
CPT/HCPCS: 71046

== ENCOUNTER 2020-04-01 20:09 | Emergency (ER) | payer MEDICARE ==
[2020-04-01 20:28] VITALS: BP 162/85; PULSE 77; RESP 18; TEMP 97
[2020-04-01 21:52] LABS: Basophils # (A) 0.1 k/uL (0-0.2); Basophils % (A) 1 %; Eosinophils # (A) 0.2 k/uL (0-0.7); Eosinophils % (A) 2 %; HCT 51.2 % (39.0-53.0); HGB 16.7 gm/dL (13.0-17.5); Lymphocytes % (A) 9 %; MCH 30.8 pg (25.0-35.0); MCHC 32.6 g/dL (31.0-37.0); MCV 94.5 fL (80.0-100.0); Mean Platelet Volume 6.9; Monocytes # (A) 0.7 k/uL (0-1.0); Monocytes % (A) 7 %; Neutrophils # (A) 8.9 k/uL (1.3-7.7); Neutrophils % (A) 81 %; Platelet Count 182 k/uL (150-450); RBC 5.42 m/uL (4.30-5.90); WBC 11.1 k/uL (3.8-10.6)
[2020-04-01 22:02] LABS: Albumin 4.5 g/dL (3.5-5.0); Calcium 9.4 mg/dL (8.4-10.2); Potassium 4.6 mmol/L (3.5-5.1); Total Bilirubin 2.2 mg/dL (0.2-1.3); Total Protein 7.6 g/dL (6.3-8.2)
[2020-04-01 22:03] LABS: INR 1.2 (<1.2); Partial Thromboplastin Time 32.6 sec (22.0-30.0); Prothrombin Time 12.4 sec (9.0-12.0)
[2020-04-01 22:10] LABS: Appearance,Urine Bloody (Clear); Color,Urine Red
--- NOTE | 2020-04-01 22:21 | ED ---
Male Urogenital HPI - General Chief complaint: Urogenital Stated complaint: Urogenital Time Seen by Provider: 04/01/20 21:00 Source: patient, family Mode of arrival: wheelchair Limitations: no limitations - History of Present Illness Initial comments: Patient is a 80-year-old male presenting to emergency Department with complaints of hematuria that started this evening. Patient has had a urostomy for many years now and has never had this issue. Patient states he is on xarelto secondary to A. fib. He denies any chest pain, shortness of breath, abdominal pain, fever, chills. He states he went to change his bag earlier this evening and noticed the blood so he came into the ER. His urologist is Dr. Ramsey. He has no further complaints at this time. Upon arrival to the ER, his vitals are stable. - Related Data Home Medications Medication Instructions Recorded Confirmed Furosemide [Lasix] 20 mg PO BID 03/08/19 03/08/19 Ipratropium-Albuterol Nebulize 3 ml INHALATION RT-QID PRN 03/08/19 03/08/19 [Duoneb 0.5 mg-3 mg/3 ml Soln] Previous Rx's Medication Instructions Recorded Azithromycin [Zithromax] 500 mg PO Q24H 5 Days #5 tab 03/10/19 Budesonide/Formoterol Fumarate 1 puff IH BID #1 hfa.aer.ad 03/10/19 [Symbicort 160-4.5 Mcg Inhaler] amLODIPine [Norvasc] 10 mg PO DAILY 30 Days #30 tab 03/10/19 lisinopriL [Zestril] 5 mg PO BID 30 Days #60 tab 03/10/19 predniSONE 10 mg PO DIRECTED #30 tab 03/10/19 Cephalexin [Keflex] 500 mg PO Q6HR 7 Days #28 cap 04/01/20 Allergies Allergy/AdvReac Type Severity Reaction Status Date / Time No Known Allergies Allergy Verified 03/08/19 14:35 Review of Systems ROS Statement: Those systems with pertinent positive or pertinent negative responses have been documented in the HPI. ROS Other: All systems not noted in ROS Statement are negative. Past Medical History Past Medical History: Cancer, COPD, Hypertension, Respiratory Disorder Additional Past Medical History / Comment(s): Pt recently admitted to [facility] on 02/17/19 with acute exacerbation COPD. Other hx: Current sores bilateral legs/worse on R lower leg, prostate cancer with surgery, bladder surgery with cystectomy/urostomy, UTIs, L paratid wathins benign tumor, chronic low back pain, numbness/tingling bilateral lower extremities with R side worse, lower leg edema. History of Any Multi-Drug Resistant Organisms: None Reported Past Surgical History: Back Surgery, Bladder Surgery, Orthopedic Surgery, Prostate Surgery Additional Past Surgical History / Comment(s): Lower back surgery, cervical surgery, L knee arthroscopic surgery, prostatectomy, cystectomy/urostomy, Past Anesthesia/Blood Transfusion Reactions: No Reported Reaction Past Psychological History: No Psychological Hx Reported Smoking Status: Never smoker Past Alcohol Use History: Occasional Past Drug Use History: None Reported - Past Family History Father Family Medical History: Vascular Disorder Additional Family Medical History / Comment(s): Father young from a brain aneurysm. Mother Family Medical History: Cancer Additional Family Medical History / Comment(s): Mother young with a malignant brain tumor. Brother(s) Family Medical History: Cancer Additional Family Medical History / Comment(s): Brother of malignant brain cancer (same kind as the mother). General Exam - General Exam Comments Initial Comments: GENERAL: Patient is well-developed and well-nourished. Patient is nontoxic and in no acute distress. HEAD: Atraumatic, normocephalic. EYES: Pupils equal round and reactive to light, extraocular movements intact, sclera anicteric, conjunctiva are normal. Eyelids were unremarkable. ENT: TMs normal, nares patent, oropharynx clear without exudates. Moist mucous membranes. NECK: Normal range of motion, supple without lymphadenopathy or JVD. LUNGS: Unlabored respirations. Scattered wheezes throughout, history of COPD. HEART: Regular rate and rhythm without murmurs, rubs or gallops. ABDOMEN: Soft, nontender, normoactive bowel sounds. No guarding, no rebound. No masses appreciated. : Deferred, gross blood in urostomy bag MUSCULOSKELETAL: Normal extremities with adequate strength and normal range of motion, no pitting or edema. No clubbing or cyanosis. NEUROLOGICAL: Patient is alert and oriented x 3. Motor and sensory are also intact. Cranial nerves II through XII grossly intact. Symmetrical smile. Normal speech, normal gait. PSYCH: Normal mood, normal affect. SKIN: Warm, Dry, normal turgor, no rashes or lesions noted. Limitations: no limitations Course Vital Signs 04/01/20 20:23 Temperature 97.0 F L Pulse Rate 77 Respiratory 18 Rate Blood Pressure 162/85 O2 Sat by Pulse 97 Oximetry Medical Decision Making - Medical Decision Making Patient is a 80-year-old male here for blood in his urostomy bag that he notices evening. He has no further complaints, no belly pain. His vital signs are stable. He is on xarelto for A.fib. Labs are stable, urine just shows bloody appearance. I will start patient on antibiotics with concerns of a UTI. I will have him follow-up with his PCP as well as urology. I will also have him hold his blood thinner until follow-up. Patient is in agreement with this plan of care. He is stable for discharge. Return parameters were discussed with the patient and his son and they both verbalized understanding. Case discussed with Dr. Uribe. - Lab Data Result diagrams: 04/01/20 21:34 04/01/20 21:34 Lab Results 04/01/20 04/01/20 04/01/20 Range/Units 21:34 21:34 21:34 WBC 11.1 H (3.8-10.6) k/uL RBC 5.42 (4.30-5.90) m/uL Hgb 16.7 (13.0-17.5) gm/dL Hct 51.2 (39.0-53.0) % MCV 94.5 (80.0-100.0) fL MCH 30.8 (25.0-35.0) pg MCHC 32.6 (31.0-37.0) g/dL RDW 14.0 (11.5-15.5) % Plt Count 182 (150-450) k/uL MPV 6.9 Neutrophils % 81 % Lymphocytes % 9 % Monocytes % 7 % Eosinophils % 2 % Basophils % 1 % Neutrophils # 8.9 H (1.3-7.7) k/uL Lymphocytes # 1.0 (1.0-4.8) k/uL Monocytes # 0.7 (0-1.0) k/uL Eosinophils # 0.2 (0-0.7) k/uL Basophils # 0.1 (0-0.2) k/uL PT 12.4 H (9.0-12.0) sec INR 1.2 H (<1.2) APTT 32.6 H (22.0-30.0) sec Sodium (137-145) mmol/L Potassium (3.5-5.1) mmol/L Chloride (98-107) mmol/L Carbon Dioxide (22-30) mmol/L Anion Gap mmol/L BUN (9-20) mg/dL Creatinine (0.66-1.25) mg/dL Est GFR (CKD-EPI)AfAm (>60 ml/min/1.73 sqM) Est GFR (CKD-EPI)NonAf (>60 ml/min/1.73 sqM) Glucose (74-99) mg/dL Calcium (8.4-10.2) mg/dL Total Bilirubin (0.2-1.3) mg/dL AST (17-59) U/L ALT (4-49) U/L Alkaline Phosphatase (38-126) U/L Total Protein (6.3-8.2) g/dL Albumin (3.5-5.0) g/dL Urine Color Red Urine Appearance Bloody (Clear) Urine RBC >182 H (0-5) /hpf Urine WBC >182 H (0-5) /hpf 04/01/20 Range/Units 21:34 WBC (3.8-10.6) k/uL RBC (4.30-5.90) m/uL Hgb (13.0-17.5) gm/dL Hct (39.0-53.0) % MCV (80.0-100.0) fL MCH (25.0-35.0) pg MCHC (31.0-37.0) g/dL RDW (11.5-15.5) % Plt Count (150-450) k/uL MPV Neutrophils % % Lymphocytes % % Monocytes % % Eosinophils % % Basophils % % Neutrophils # (1.3-7.7) k/uL Lymphocytes # (1.0-4.8) k/uL Monocytes # (0-1.0) k/uL Eosinophils # (0-0.7) k/uL Basophils # (0-0.2) k/uL PT (9.0-12.0) sec INR (<1.2) APTT (22.0-30.0) sec Sodium 140 (137-145) mmol/L Potassium 4.6 (3.5-5.1) mmol/L Chloride 107 (98-107) mmol/L Carbon Dioxide 28 (22-30) mmol/L Anion Gap 5 mmol/L BUN 26 H (9-20) mg/dL Creatinine 0.95 (0.66-1.25) mg/dL Est GFR (CKD-EPI)AfAm 88 (>60 ml/min/1.73 sqM) Est GFR (CKD-EPI)NonAf 76 (>60 ml/min/1.73 sqM) Glucose 101 H (74-99) mg/dL Calcium 9.4 (8.4-10.2) mg/dL Total Bilirubin 2.2 H (0.2-1.3) mg/dL AST 45 (17-59) U/L ALT 45 (4-49) U/L Alkaline Phosphatase 83 (38-126) U/L Total Protein 7.6 (6.3-8.2) g/dL Albumin 4.5 (3.5-5.0) g/dL Urine Color Urine Appearance (Clear) Urine RBC (0-5) /hpf Urine WBC (0-5) /hpf Disposition Clinical Impression: Hematuria Disposition: HOME SELF-CARE Condition: Stable Instructions (If sedation given, give patient instructions): Hematuria (ED) Additional Instructions: Please return to the Emergency Department if symptoms worsen or any other concerns. Take antibiotic as prescribed. Hold Xarelto until follow-up. Follow-up with your PCP as well as urology. Prescriptions: Cephalexin [Keflex] 500 mg PO Q6HR 7 Days #28 cap Is patient prescribed a controlled substance at d/c from ED?: No Referrals: David Mendez DO [Primary Care Provider] - 1-2 days Shiv Ramsey MD [STAFF PHYSICIAN] - 1-2 days
[2020-04-01 22:28] LABS: RBC,Urine >182 /hpf (0-5); WBC,Urine >182 /hpf (0-5)
[2020-04-01] MEDS ORDERED: cefTRIAXone IN SWFI 1,000 MG/10 ML SYRINGE IVP STA (22:30)
== END 2020-04-01 22:53 | disposition home or self-care (01) ==
LOC: EC 20:09
DX: R31.9 Hematuria, unspecified (principal); I48.91 Unspecified atrial fibrillation; J44.9 Chronic obstructive pulmonary disease, unspecified; I10 Essential (primary) hypertension; Z79.01 Long term (current) use of anticoagulants; Z79.899 Other long term (current) drug therapy; Z85.46 Personal history of malignant neoplasm of prostate; Z79.51 Long term (current) use of inhaled steroids; Z90.79 Acquired absence of other genital organ(s)
CPT/HCPCS: 36415; 80053; 85025; 85610; 85730; 81001; 87086; 99283; 96374; J0696

== ENCOUNTER → 2020-04-10 | Outpatient (CLI) | payer MEDICARE ==
--- NOTE | 2020-04-11 08:01 | US ---
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 EXAM MEASUREMENTS: Right Kidney: 14.5 x 10.0 x 6.4 cm Left Kidney: 13.7 x 6.0 x 8.2 cm Right Kidney: severe hydronephrosis Left Kidney: couple of renal cysts are noted with larger cyst noted superiorly = 1.4 x 1.2 x 1.5cm; r enal calcification with shadowing is noted mid pole within moderate hydronephrosis = 1.2 x 1.5 x 0.4c m. Bladder: surgically removed per patient IMPRESSION: 1. Severe right-sided hydronephrosis. 2. Moderate left-sided hydronephrosis.
== END | disposition home or self-care (01) ==
LOC: RADUSWWP 16:18
PROVIDERS: ATTEND Urology
DX: N13.30 Unspecified hydronephrosis (principal); D49.4 Neoplasm of unspecified behavior of bladder
CPT/HCPCS: 76770

== ENCOUNTER → 2020-05-03 | Outpatient (CLI) | payer MEDICARE ==
--- NOTE | 2020-05-03 15:56 | CT ---
EXAMINATION TYPE: CT abdomen pelvis wo con DATE OF EXAM: 05/03/2020 COMPARISON: None HISTORY: Kidney stone, bladder ca CT DLP: 1109 mGycm Examination of the solid and hollow viscera is limited given the lack of contrast. FINDINGS: LUNG BASES: No evidence for nodule. No evidence for infiltrate. LIVER/GB: The gallbladder is unremarkable. No space-occupying hepatic lesion. PANCREAS: No pancreatic mass identified. No inflammatory process seen. SPLEEN: No evidence for splenomegaly. No intrasplenic lesions seen. ADRENALS: No adrenal nodules identified. No evidence for thickening. KIDNEYS: There has been prior cystectomy with ileal loop formation and J-pouch. Right lower quadrant ostomy noted. There is severe right-sided hydroureteronephrosis with near complete loss of the right- sided renal parenchyma. No evidence for obstructing calculus. The left kidney demonstrates compensato ry hypertrophy. There mild fullness of the left renal collecting system. No obstructing calculus iden tified. Nonobstructing 2 mm calculus lower pole right kidney. Vascular calcifications seen. Bilateral hypoattenuating lesions may reflect cysts. BOWEL: Appendix has a normal appearance. No evidence of bowel obstruction. No inflammatory process. Lymph nodes: No evidence for adenopathy greater than 1 cm. Abdominal aorta: Atheromatous changes seen. No evidence for aneurysm. Genital organs: No significant abnormality. Other: Postoperative changes lumbar spine. Severe degenerative disc disease seen. IMPRESSION: 1.There has been prior cystectomy with ileal loop formation and J-pouch. Right lower quadrant ostomy noted. There is severe right-sided hydroureteronephrosis with near complete loss of the right-sided r enal parenchyma. No evidence for obstructing calculus.
== END | disposition home or self-care (01) ==
LOC: RADCTMAIN 14:55
PROVIDERS: ATTEND Urology
DX: C67.9 Malignant neoplasm of bladder, unspecified (principal); N13.30 Unspecified hydronephrosis; Z90.6 Acquired absence of other parts of urinary tract
CPT/HCPCS: 74176

== ENCOUNTER → 2020-06-13 | Outpatient (CLI) | payer MEDICARE ==
--- NOTE | 2020-06-13 16:39 | FL ---
EXAMINATION TYPE: FL loopogram DATE OF EXAM: 06/13/2020 COMPARISON: Correlation CT 05/03/2020 HISTORY: 80-year-old male D49.4, history of bladder cancer in 1998 with bladder removal and diverting urostomy with ileal conduit. Gross hematuria on 04/01/2020. TECHNIQUE: Total fluoroscopy time: 3 minutes 47 seconds. Total images: 30 Rivero catheter was inserted into the patient's right lower quadrant ileostomy. Balloon was inflated a nd a total of 150 mL Cystografin contrast material was injected. FINDINGS: Initial server administrator image shows multiple surgical clips in the pelvis and extensive posterior lumbar and in terbody fusion changes. Levoconvex scoliosis centered along the upper lumbar spine above the fusion. Contrast injection demonstrates filling of the patient's ileal conduit and prompt retrograde flow wit hin the left ureter and subsequent filling of the left renal collecting system. No persistent fixed n arrowing or suspicious filling defect is clearly identified. No flow is identified within the right ureter. IMPRESSION: 1. Injection of the patient's ileal conduit shows prompt retrograde filling of the left ureter and le ft renal collecting system. No definite suspicious narrowing or filling defect is identified. 2. No filling of the right ureter during the course of the exam. Given the severe hydronephrosis seen on the 05/03/2020 CT, consider anastomotic occlusion.
== END | disposition home or self-care (01) ==
LOC: RADUSWWP 13:27
PROVIDERS: ATTEND Urology
DX: D49.4 Neoplasm of unspecified behavior of bladder (principal)
CPT/HCPCS: 50431

== ENCOUNTER → 2020-12-03 | Outpatient (CLI) | payer MEDICARE ==
[2020-12-03 15:00] LABS: HGB 16.3 g/dL (13.0-17.0); MCH 31.7 pg (27.0-32.0); MCHC 33.3 g/dL (32.0-37.0); MCV 95.1 fL (80.0-97.0); Mean Platelet Volume 9.6 fL (9.5-12.2); Platelet Count 191 X 10*3/uL (140-440); RBC 5.15 X 10*6/uL (4.40-5.60); RDW 13.3 % (11.5-14.5); WBC 8.27 X 10*3/uL (4.50-10.00)
[2020-12-03 18:16] LABS: African American GFR (CKD) 82.6 (60.0-200.0); Anion Gap 10.3 mmol/L (4.00-12.00); Carbon Dioxide 27.7 mmol/L (21.6-31.8); Non-African American GFR(CKD) 71.3 (60.0-200.0); Potassium 4.4 mmol/L (3.5-5.5)
== END | disposition home or self-care (01) ==
LOC: LABWHC1 09:38
PROVIDERS: ATTEND Internal Medicine Cardiovascular Disease
DX: I48.11 Longstanding persistent atrial fibrillation (principal)
CPT/HCPCS: 36415; 80048; 84443; 85027